=== PATIENT | female | born 1955 | race Caucasian/White ===

== ENCOUNTER 2020-04-09 17:30 | Outpatient (REF) | payer OTHER, MEDICARE, SELFPAY ==
--- NOTE | 2020-04-09 | MM_ITS ---
EXAMINATION: MM SCREENING DIGITAL BREAST TOMOSYNTHESIS, BILATERAL CLINICAL INFORMATION: Screening. Asymptomatic. The lifetime risk of breast cancer based on the Tyrer-Cuzick Model is 6%. COMPARISON: Mammography: 01/05/2019, 12/24/2017, 09/14/2016, 08/28/2015, 07/25/2014, 05/19/2013, 11/21/2012 TECHNIQUE: Digital breast tomosynthesis is performed in both the craniocaudal and mediolateral oblique views along with computer-aided detection (CAD). Synthesized 2D images are generated from the tomosynthesis. FINDINGS: There are scattered areas of fibroglandular density (ACR BI-RADS breast composition Category b). There is inhomogeneous parenchymal pattern with scattered stable asymmetries, similar to prior studies dating back to 2012. There is no interval developing density. No interval mass or interval architectural abnormality. No abnormal calcifications. The skin contours are smooth. MM/MM tomosynthesis screening BI IMPRESSION: No significant changes from prior exams. ASSESSMENT: BI-RADS 2: Benign RECOMMENDATION: Routine annual mammography screening. This patient's information was entered into a reminder system with a target due date for their next mammogram.
== END 2020-04-09 17:31 | disposition home or self-care (01) ==
LOC: HO.MAMMO 17:30
PROVIDERS: PCP Physician Assistant; Visit Provider Physician Assistant
DX: Z12.31 Encounter for screening mammogram for malignant neoplasm of breast (principal)
CPT/HCPCS: 77063; 77067

== ENCOUNTER 2020-05-14 08:56 | Outpatient (REF) | payer OTHER, MEDICARE, SELFPAY ==
[2020-05-14 09:37] LABS: MANUAL DIFF FLAG NO
[2020-05-14 09:38] LABS: Basophils Percent Auto 0.4 % (0-2); Eosinophils Absolute Auto 0.1 X10*3/uL (0.0-0.4); Eosinophils Percent Auto 1.5 % (0-4); Hematocrit 43.1 % (37-47); Hemoglobin 13.9 g/dl (12.0-16.0); Imm Gran Abs Auto 0.02 X10*3/uL (0.00-0.03); Imm Gran Pct Auto 0.2 % (0.0-0.4); Lymphocytes Absolute Auto 1.1 X10*3/uL (1.2-4.9); Lymphocytes Percent Auto 13.1 % (20-40); Mean Corpuscular HGB Conc 32.3 g/dl (31.0-35.0); Mean Corpuscular Volume 89.8 fL (80-98); Mean Platelet Volume 9.3 fL (9.4-12.3); Monocytes Absolute Auto 0.9 X10*3/uL (0.1-1.2); Monocytes Percent Auto 10.4 % (2-11); Neutrophils Absolute Auto 6.3 X10*3/uL (2.0-8.3); Neutrophils Percent Auto 74.4 % (45-73); Platelet Count 257 X10*3/uL (160-400); White Blood Count 8.5 X10*3/uL (4.8-10.8)
[2020-05-14 10:03] LABS: Estimated Average Glucose 117 mg/dL; Hemoglobin A1c % 5.7 %
[2020-05-14 10:20] LABS: Alanine Aminotransferase 43 U/L (0-31); Albumin Level 4.5 g/dL (3.5-5.0); Alkaline Phosphatase 77 U/L (39-117); Anion Gap 13 (12-20); Aspartate Amino Transferase 27 U/L (5-31); Bilirubin Total 1.3 mg/dL (0.0-1.0); Blood Urea Nitrogen 12 mg/dL (9-16); Calcium 9.2 mg/dL (8.4-10.2); Carbon Dioxide 31 mmol/L (22-29); Chloride 101 mmol/L (96-108); Cholesterol 222 mg/dL; Estimated Glomerular Filt Rate > 60; Glucose Fasting 97 mg/dL (60-99); HDL Cholesterol 79 mg/dL; LDL Cholesterol Calculated 127 mg/dl; Potassium 4.3 mmol/l (3.3-5.1); Sodium 141 mmol/L (135-145); Total Protein 7.3 g/dL (6.5-8.0); Triglycerides 80 mg/dL
[2020-05-14 10:22] LABS: Thyroid Stimulating Hormone 5.86 uIU/mL (0.32-4.0)
[2020-05-14 10:33] LABS: Creatinine Urine 65.68 mg/dL; Microalbum/Creatinine Ratio Ur 18.2 ug/mg cr
== END 2020-05-14 08:57 | disposition home or self-care (01) ==
LOC: HO.LAB 08:56
PROVIDERS: PCP Physician Assistant; Visit Provider Physician Assistant
DX: E03.9 Hypothyroidism, unspecified (principal); I11.0 Hypertensive heart disease with heart failure; E78.2 Mixed hyperlipidemia; R73.09 Other abnormal glucose
CPT/HCPCS: 36415; 80053; 80061; 82043; 83036; 84443; 85025

== ENCOUNTER 2020-11-25 10:05 | Outpatient (REF) | payer MEDICARE, OTHER, SELFPAY ==
[2020-11-25 10:48] LABS: Hematocrit 43.5 % (37-47); Mean Corpuscular HGB Conc 32.2 g/dl (31.0-35.0); Mean Corpuscular Hemoglobin 28.6 pg (27.0-33.0); Mean Corpuscular Volume 88.8 fL (80-98); Platelet Count 294 X10*3/uL (160-400); Red Cell Distribution Width 12.9 % (11.0-16.0); White Blood Count 5.4 X10*3/uL (4.8-10.8)
[2020-11-25 11:19] LABS: Alanine Aminotransferase 23 U/L (0-31); Albumin Level 4.5 g/dL (3.5-5.0); Alkaline Phosphatase 74 U/L (39-117); Anion Gap 12 (12-20); Aspartate Amino Transferase 22 U/L (5-31); Bilirubin Total 1.2 mg/dL (0.0-1.0); Blood Urea Nitrogen 11 mg/dL (9-16); Calcium 9.6 mg/dL (8.4-10.2); Carbon Dioxide 30 mmol/L (22-29); Chloride 103 mmol/L (96-108); Cholesterol 202 mg/dL; Estimated Glomerular Filt Rate > 60; Glucose Fasting 98 mg/dL (60-99); HDL Cholesterol 79 mg/dL; LDL Cholesterol Calculated 107 mg/dl; Potassium 4.1 mmol/L (3.3-5.1); Sodium 141 mmol/L (135-145); Total Protein 7.3 g/dL (6.5-8.0); Triglycerides 80 mg/dL
[2020-11-25 11:20] LABS: Creatinine Urine 38.47 mg/dL; Microalbum/Creatinine Ratio Ur 23.3 ug/mg cr
[2020-11-25 11:42] LABS: TSH reflex Free T4 0.32 uIU/mL (0.32-4.0)
== END 2020-11-25 10:06 | disposition home or self-care (01) ==
LOC: HO.LAB 10:05
PROVIDERS: PCP Physician Assistant; Visit Provider Physician Assistant
DX: E03.9 Hypothyroidism, unspecified (principal); E78.5 Hyperlipidemia, unspecified; I10 Essential (primary) hypertension
CPT/HCPCS: 36415; 80053; 80061; 82043; 84443; 85027

== ENCOUNTER 2021-04-23 10:00 | Outpatient (REF) | payer MEDICARE, OTHER, SELFPAY ==
--- NOTE | ~2021-04-23 | MM_ITS ---
EXAMINATION: MM SCREENING DIGITAL BREAST TOMOSYNTHESIS, BILATERAL CLINICAL INFORMATION: Screening. Asymptomatic. The lifetime risk of breast cancer based on the Tyrer-Cuzick Model is 6.3%. COMPARISON: Mammography: April 09, 2020 and studies dating back to September 21, 2011 TECHNIQUE: Digital breast tomosynthesis is performed in both the craniocaudal and mediolateral oblique views along with computer-aided detection (CAD). Synthesized 2D images are generated from the tomosynthesis. FINDINGS: The breasts are heterogeneously dense, which may obscure small masses (ACR BI-RADS breast composition Category c). There is a stable region of architectural distortion about the upper outer aspect of the right breast. No new abnormal dominant mass or suspicious grouping of microcalcifications identified. MM/MM tomosynthesis screening BI IMPRESSION: There are no significant changes from prior study. ASSESSMENT: BI-RADS 2: Benign RECOMMENDATION: Routine annual mammography screening. This patient's information was entered into a reminder system with a target due date for their next mammogram.
== END 2021-04-23 10:01 | disposition home or self-care (01) ==
LOC: HO.MAMMO 10:00
PROVIDERS: Visit Provider Physician Assistant
DX: Z12.31 Encounter for screening mammogram for malignant neoplasm of breast (principal)
CPT/HCPCS: 77063; 77067

== ENCOUNTER 2021-05-12 08:25 | Outpatient (REF) | payer MEDICARE, OTHER, SELFPAY | END 2021-05-12 08:26 | disposition home or self-care (01) | LOC: HO.LAB 08:25 | PROVIDERS: PCP Physician Assistant; Visit Provider Physician Assistant | DX: Z13.89 Encounter for screening for other disorder (principal) ==

== ENCOUNTER 2021-05-19 08:24 | Outpatient (REF) | payer MEDICARE, OTHER, SELFPAY ==
[2021-05-19 09:24] LABS: Hematocrit 40.9 % (37.0-47.0); Hemoglobin 13.1 g/dl (12.0-16.0); Mean Corpuscular Hemoglobin 28.4 pg (27.0-33.0); Mean Corpuscular Volume 88.7 fL (80.0-98.0); Mean Platelet Volume 9.2 fL (9.4-12.3); Platelet Count 294 X10*3/uL (160-400); Red Blood Count 4.61 X10*6/uL (4.20-5.50); Red Cell Distribution Width 13.2 % (11.0-16.0); White Blood Count 6.2 X10*3/uL (4.8-10.8)
[2021-05-19 09:48] LABS: Alanine Aminotransferase 29 U/L (0-31); Albumin Level 4.2 g/dL (3.5-5.0); Alkaline Phosphatase 74 U/L (39-117); Anion Gap 10 (12-20); Aspartate Amino Transferase 19 U/L (5-31); Bilirubin Total 1.1 mg/dL (0.0-1.0); Blood Urea Nitrogen 15 mg/dL (9-16); Calcium 9.7 mg/dL (8.4-10.2); Carbon Dioxide 29 mmol/L (22-29); Chloride 105 mmol/L (96-108); Cholesterol 208 mg/dL; Estimated Glomerular Filt Rate > 60; Glucose Fasting 105 mg/dL (60-99); HDL Cholesterol 65 mg/dL; LDL Cholesterol Calculated 119 mg/dl; Potassium 3.9 mmol/L (3.3-5.1); Sodium 140 mmol/L (135-145); Total Protein 6.8 g/dL (6.5-8.0); Triglycerides 123 mg/dL
[2021-05-19 10:07] LABS: TSH reflex Free T4 0.21 uIU/mL (0.32-4.0)
[2021-05-19 10:50] LABS: Free T4 (Free Thyroxine) 1.18 ng/dL (0.71-1.85)
== END 2021-05-19 08:25 | disposition home or self-care (01) ==
LOC: HO.LAB 08:24
PROVIDERS: PCP Physician Assistant; Visit Provider Physician Assistant
DX: E78.5 Hyperlipidemia, unspecified (principal); E03.9 Hypothyroidism, unspecified; I10 Essential (primary) hypertension
CPT/HCPCS: 36415; 80053; 80061; 84439; 84443; 85027

== ENCOUNTER 2021-06-24 13:55 | Outpatient (REF) | payer MEDICARE, OTHER, SELFPAY ==
--- NOTE | ~2021-06-24 | MM_ITS ---
EXAMINATION: BONE DENSITOMETRY CLINICAL INDICATION: Menopause. COMPARISON: Previous BD dated 04/25/2015 and baseline BD dated 07/09/2008. TECHNIQUE: Using a OnePIN DXA System (software version: 13.1) manufactured by [employer], dual-energy x-ray absorptiometry was performed of the lumbar spine and left hip. The images are of good technical quality. Summary results are attached. FINDINGS: AP SPINE L1-L4: Current: BMD 1.085 g/cm2, Z-score 0.8, T-score -0.8, normal, 5.2% decrease from previous, 7.2% decrease from baseline (<5% change is not significant). Prior: BMD 1.144 g/cm2. Baseline: BMD 1.169 g/cm2. LEFT FEMUR, NECK: Current: BMD 0.770 g/cm2, Z-score -0.3, T-score -1.9, osteopenia. Prior: BMD 0.824 g/cm2. Baseline: BMD 0.856 g/cm2. LEFT FEMUR, TOTAL: Current: BMD 0.822 g/cm2, Z-score -0.1, T-score -1.5, osteopenia, 5.3% decrease from previous, 8.9% decrease from baseline (<5% change is not significant). Prior: BMD 0.868 g/cm2. Baseline: BMD 0.902 g/cm2. IDENTIFIED RISK FACTORS: Menopause, family history (parent hip fracture), low calcium intake, Thiazide. HISTORY OF FRACTURE: None listed. MEDICATIONS: Vitamin D. MM/XR DEXA axial skeleton IMPRESSION: 1. DIAGNOSIS: Osteopenia based on the lowest T-score value of -1.9 in the femoral neck applying World Health Organization criteria. 2. 10-YEAR FRACTURE RISK PREDICTION, FRAX: Major osteoporotic fracture (clinical spine, forearm, hip or shoulder) 18.9%. Hip fracture 3.0%. 3. Treatment Recommendations: NOF guidelines recommend consideration for treatment in postmenopausal women and men age 50 and older presenting with the following: -A hip or vertebral (clinical or morphometric) fracture. -T-score less than or equal to -2.5 at the femoral neck or spine after appropriate evaluation to exclude secondary causes. -Low bone mass at the hip or spine and a 10-year fracture probability by FRAX of greater than or equal to 3% for hip fracture or greater than or equal to 20% for major osteoporotic fracture based on the [place] adapted WHO algorithm. 4. Other Recommendations: All treatment decisions require clinical judgment and consideration of individual patient factors, including patient preferences, comorbidities, previous drug use, risk factors not captured in the FRAX model (e.g. frailty, falls, vitamin D deficiency, increased bone turnover, interval significant decline in bone density) and possible under or overestimation of fracture risk by FRAX. Additional medical evaluation for secondary cause of low bone mineral density may be appropriate. FUTURE SCAN RECOMMENDATION: People with diagnosed cases of osteoporosis or at high risk for fracture should have regular bone mineral density tests. For patients eligible for Medicare, routine testing is allowed once every 2 years. The testing frequency can be increased to one year for patients who have rapidly progressing disease, those who are receiving or discontinuing medical therapy to restore bone mass, or have additional risk factors.
== END 2021-06-24 13:56 | disposition home or self-care (01) ==
LOC: HO.MAMMO 13:55
PROVIDERS: PCP Physician Assistant; Visit Provider Physician Assistant
DX: Z13.820 Encounter for screening for osteoporosis (principal); Z78.0 Asymptomatic menopausal state; M85.80 Other specified disorders of bone density and structure, unspecified site; Z79.899 Other long term (current) drug therapy
CPT/HCPCS: 77080

== ENCOUNTER 2021-11-18 09:13 | Outpatient (REF) | payer MEDICARE, OTHER, SELFPAY ==
[2021-11-18 09:55] LABS: Hematocrit 42.1 % (37.0-47.0); Hemoglobin 13.4 g/dl (12.0-16.0); Mean Corpuscular HGB Conc 31.8 g/dl (31.0-35.0); Mean Corpuscular Hemoglobin 28.3 pg (27.0-33.0); Mean Platelet Volume 8.8 fL (9.4-12.3); Platelet Count 302 X10*3/uL (160-400); Red Blood Count 4.73 X10*6/uL (4.20-5.50); Red Cell Distribution Width 13.1 % (11.0-16.0); White Blood Count 9.1 X10*3/uL (4.8-10.8)
[2021-11-18 10:07] LABS: Estimated Average Glucose 117 mg/dL; Hemoglobin A1c % 5.7 %
[2021-11-18 10:17] LABS: Creatinine Urine 39.83 mg/dL; Microalbum/Creatinine Ratio Ur 25.1 ug/mg cr
[2021-11-18 10:39] LABS: Alanine Aminotransferase 19 U/L (0-31); Albumin Level 4.6 g/dL (3.5-5.0); Alkaline Phosphatase 70 U/L (39-117); Anion Gap 14 (12-20); Aspartate Amino Transferase 20 U/L (5-31); Bilirubin Total 1.2 mg/dL (0.0-1.0); Blood Urea Nitrogen 14 mg/dL (9-16); Calcium 9.3 mg/dL (8.4-10.2); Carbon Dioxide 28 mmol/L (22-29); Chloride 102 mmol/L (96-108); Cholesterol 219 mg/dL; Estimated Glomerular Filt Rate > 60; Glucose Fasting 101 mg/dL (60-99); HDL Cholesterol 79 mg/dL; LDL Cholesterol Calculated 126 mg/dl; Potassium 3.8 mmol/L (3.3-5.1); Sodium 140 mmol/L (135-145); Total Protein 7.1 g/dL (6.5-8.0); Triglycerides 73 mg/dL
[2021-11-18 10:43] LABS: TSH reflex Free T4 1.21 uIU/mL (0.32-4.0)
== END 2021-11-18 09:14 | disposition home or self-care (01) ==
LOC: HO.LAB 09:13
PROVIDERS: PCP Physician Assistant; Visit Provider Physician Assistant
DX: E03.9 Hypothyroidism, unspecified (principal); I10 Essential (primary) hypertension; E78.5 Hyperlipidemia, unspecified
CPT/HCPCS: 36415; 80053; 80061; 82043; 83036; 84443; 85027

== ENCOUNTER 2021-11-24 12:50 | Outpatient (REF) | payer MEDICARE, OTHER, SELFPAY ==
[2021-11-24 14:13] LABS: Appearance Urine HAZY; Color Urine YELLOW; Glucose Urine UA NEG (NEG); Leukocyte Esterase Urine 2+ (NEG); Nitrite Urine NEG (NEG); Specific Gravity - Urine 1.015 (1.005-1.025); UACC Culture Trigger YES; Urine Blood NEG (NEG); Urine Ketones NEG (NEG); Urine Protein NEG (NEG-TRACE)
[2021-11-24 14:28] LABS: Bacteria Urine 2+ /LPF; Squamous Epithelial Cell Urine TRACE /LPF; WBC Clumps Urine NOTED
[2021-11-24 14:29] LABS: RBC Urine 0-2 /HPF (0)
== END 2021-11-24 12:51 | disposition home or self-care (01) ==
LOC: HO.HMGCLDS 12:50
PROVIDERS: PCP Physician Assistant; Visit Provider Internal Medicine
DX: R30.0 Dysuria (principal)
CPT/HCPCS: 81001; 87086; 87088; 87186

== ENCOUNTER 2022-04-20 09:07 | Outpatient (REF) | payer MEDICARE, OTHER, SELFPAY ==
[2022-04-20 09:56] LABS: Hematocrit 41.8 % (37.0-47.0); Hemoglobin 13.4 g/dl (12.0-16.0); Mean Corpuscular HGB Conc 32.1 g/dl (31.0-35.0); Mean Corpuscular Hemoglobin 28.1 pg (27.0-33.0); Mean Corpuscular Volume 87.6 fL (80.0-98.0); Mean Platelet Volume 8.7 fL (9.4-12.3); Platelet Count 317 X10*3/uL (160-400); Red Blood Count 4.77 X10*6/uL (4.20-5.50); Red Cell Distribution Width 13.4 % (11.0-16.0); White Blood Count 7.6 X10*3/uL (4.8-10.8)
[2022-04-20 10:12] LABS: Creatinine Urine 14.43 mg/dL; Microalbum/Creatinine Ratio Ur 41.5 ug/mg cr
[2022-04-20 11:25] LABS: Alanine Aminotransferase 32 U/L (0-31); Albumin Level 4.3 g/dL (3.5-5.0); Alkaline Phosphatase 79 U/L (39-117); Anion Gap 11 (12-20); Aspartate Amino Transferase 26 U/L (5-31); Bilirubin Total 1.1 mg/dL (0.0-1.0); Blood Urea Nitrogen 11 mg/dL (9-16); Calcium 9.3 mg/dL (8.4-10.2); Carbon Dioxide 31 mmol/L (22-29); Chloride 103 mmol/L (96-108); Cholesterol 208 mg/dL; Estimated Glomerular Filt Rate > 60; Glucose Fasting 97 mg/dL (60-99); HDL Cholesterol 75 mg/dL; LDL Cholesterol Calculated 119 mg/dl; Potassium 3.8 mmol/L (3.3-5.1); Sodium 141 mmol/L (135-145); TSH reflex Free T4 2.17 uIU/mL (0.32-4.0); Total Protein 7.1 g/dL (6.5-8.0); Triglycerides 72 mg/dL
== END 2022-04-20 09:08 | disposition home or self-care (01) ==
LOC: HO.LAB 09:07
PROVIDERS: PCP Physician Assistant; Visit Provider Physician Assistant
DX: E78.5 Hyperlipidemia, unspecified (principal); E03.9 Hypothyroidism, unspecified; I10 Essential (primary) hypertension
CPT/HCPCS: 36415; 80053; 80061; 82043; 84443; 85027

== ENCOUNTER 2022-04-27 11:50 | Outpatient (REF) | payer MEDICARE, OTHER, SELFPAY ==
--- NOTE | ~2022-04-27 | MM_ITS ---
EXAMINATION: MM SCREENING DIGITAL BREAST TOMOSYNTHESIS, BILATERAL CLINICAL INFORMATION: Screening. Asymptomatic. The lifetime risk of breast cancer based on the Tyrer-Cuzick Model is 5%. COMPARISON: Mammography: 04/23/2021, 04/09/2020, 01/05/2019, 12/24/2017, 09/14/2016 TECHNIQUE: Digital breast tomosynthesis is performed in both the craniocaudal and mediolateral oblique views along with computer-aided detection (CAD). Synthesized 2D images are generated from the tomosynthesis. FINDINGS: There are scattered areas of fibroglandular density (ACR BI-RADS breast composition Category b). There are chronic bilateral patchy parenchymal asymmetries similar to prior studies. No developing density or interval mass or architectural abnormality. No abnormal calcifications. The axilla and skin contours are unremarkable. No significant changes. MM/MM tomosynthesis screening BI IMPRESSION: No significant changes from prior exams. ASSESSMENT: BI-RADS 2: Benign RECOMMENDATION: Routine annual mammography screening. This patient's information was entered into a reminder system with a target due date for their next mammogram.
== END 2022-04-27 11:51 | disposition home or self-care (01) ==
LOC: HO.MAMMO 11:50
PROVIDERS: PCP Physician Assistant; Visit Provider Physician Assistant
DX: Z12.31 Encounter for screening mammogram for malignant neoplasm of breast (principal)
CPT/HCPCS: 77063; 77067

== ENCOUNTER 2022-08-13 11:23 | Outpatient (REF) | payer MEDICARE, OTHER, SELFPAY ==
--- NOTE | ~2022-08-13 | XR_ITS ---
EXAMINATION: XR WRIST, LEFT XR HAND, LEFT CLINICAL INFORMATION: Left hand and wrist pain. COMPARISON: None available. TECHNIQUE: PA, lateral, and oblique views of the left wrist and PA, lateral, and oblique views of the left hand FINDINGS: LEFT WRIST: The bones and soft tissues are normal. No fracture. Alignment is anatomic. Joint spaces are maintained. No erosions or soft tissue calcifications. LEFT HAND: The bones and soft tissues are normal. No fracture. Alignment is anatomic. Joint spaces are maintained. No erosions or soft tissue calcifications. XR/XR hand wrist LT IMPRESSION: Unremarkable left hand and wrist.
== END 2022-08-13 11:24 | disposition home or self-care (01) ==
LOC: HO.HMGCX 11:23
PROVIDERS: PCP Physician Assistant; Visit Provider Internal Medicine
DX: M25.532 Pain in left wrist (principal)
CPT/HCPCS: 73110; 73130

== ENCOUNTER 2022-11-03 09:52 | Outpatient (REF) | payer MEDICARE, OTHER, SELFPAY ==
[2022-11-03 11:43] LABS: Hematocrit 41.2 % (37.0-47.0); Hemoglobin 13.3 g/dl (12.0-16.0); Mean Corpuscular HGB Conc 32.3 g/dl (31.0-35.0); Mean Corpuscular Hemoglobin 28.9 pg (27.0-33.0); Mean Corpuscular Volume 89.4 fL (80.0-98.0); Mean Platelet Volume 9.7 fL (9.4-12.3); Platelet Count 307 X10*3/uL (160-400); Red Blood Count 4.61 X10*6/uL (4.20-5.50); Red Cell Distribution Width 13.4 % (11.0-16.0); White Blood Count 6.1 X10*3/uL (4.8-10.8)
[2022-11-03 12:38] LABS: Alanine Aminotransferase 20 U/L (0-31); Albumin Level 4.3 g/dL (3.5-5.0); Alkaline Phosphatase 73 U/L (39-117); Anion Gap 14 (12-20); Aspartate Amino Transferase 21 U/L (5-31); Bilirubin Total 1.4 mg/dL (0.0-1.0); Blood Urea Nitrogen 12 mg/dL (9-16); Calcium 9.7 mg/dL (8.4-10.2); Carbon Dioxide 28 mmol/L (22-29); Chloride 103 mmol/L (96-108); Cholesterol 206 mg/dL; Estimated Glomerular Filt Rate > 60; Glucose Fasting 92 mg/dL (60-99); HDL Cholesterol 64 mg/dL; LDL Cholesterol Calculated 128 mg/dl; Potassium 3.5 mmol/L (3.3-5.1); Sodium 141 mmol/L (135-145); Total Protein 7.4 g/dL (6.5-8.0); Triglycerides 72 mg/dL
[2022-11-03 12:41] LABS: TSH reflex Free T4 0.52 uIU/mL (0.32-4.0)
[2022-11-03 13:11] LABS: Creatinine Urine 40.89 mg/dL; Microalbum/Creatinine Ratio Ur 17.1 ug/mg cr
== END 2022-11-03 09:53 | disposition home or self-care (01) ==
LOC: HO.HMGCLDS 09:52
PROVIDERS: PCP Physician Assistant; Visit Provider Physician Assistant
DX: E03.9 Hypothyroidism, unspecified (principal); I10 Essential (primary) hypertension; E78.5 Hyperlipidemia, unspecified
CPT/HCPCS: 36415; 80053; 80061; 82043; 84443; 85027

== ENCOUNTER 2023-04-28 12:13 | Outpatient (REF) | payer MEDICARE, OTHER, SELFPAY | END 2023-04-28 12:14 | disposition home or self-care (01) | LOC: HO.MAMMO 12:13 | PROVIDERS: PCP Physician Assistant; Visit Provider Physician Assistant | DX: Z12.31 Encounter for screening mammogram for malignant neoplasm of breast (principal) | CPT/HCPCS: 77063; 77067 ==

== ENCOUNTER → 2023-04-28 12:30 | Outpatient (BNV) | payer MEDICARE, OTHER, SELFPAY | PROVIDERS: PCP Physician Assistant; Visit Provider Radiology Diagnostic Radiology | DX: Z12.31 Encounter for screening mammogram for malignant neoplasm of breast (principal) | CPT/HCPCS: 77063; 77067 ==

== ENCOUNTER 2023-04-29 08:38 | Outpatient (REF) | payer MEDICARE, OTHER, SELFPAY ==
[2023-04-29 12:00] LABS: Hematocrit 41.7 % (37.0-47.0); Hemoglobin 13.2 g/dl (12.0-16.0); Mean Corpuscular HGB Conc 31.7 g/dl (31.0-35.0); Mean Corpuscular Volume 88.5 fL (80.0-98.0); Mean Platelet Volume 9.1 fL (9.4-12.3); Platelet Count 320 X10*3/uL (160-400); Red Blood Count 4.71 X10*6/uL (4.20-5.50); Red Cell Distribution Width 13.5 % (11.0-16.0); White Blood Count 6.5 X10*3/uL (4.8-10.8)
[2023-04-29 12:19] LABS: Alanine Aminotransferase 14 U/L (0-31); Albumin Level 4.2 g/dL (3.5-5.0); Alkaline Phosphatase 74 U/L (39-117); Anion Gap 11 (12-20); Aspartate Amino Transferase 18 U/L (5-31); Bilirubin Total 1.2 mg/dL (0.0-1.0); Blood Urea Nitrogen 16 mg/dL (9-16); Calcium 9.4 mg/dL (8.4-10.2); Carbon Dioxide 30 mmol/L (22-29); Chloride 100 mmol/L (96-108); Cholesterol 204 mg/dL (<200); Estimated Glomerular Filt Rate > 60; Glucose Fasting 92 mg/dL (60-99); HDL Cholesterol 71 mg/dL (>40); LDL Cholesterol Calculated 117 mg/dL (<100); Potassium 3.4 mmol/L (3.3-5.1); Sodium 138 mmol/L (135-145); Total Protein 7.4 g/dL (6.5-8.0); Triglycerides 84 mg/dL (<150)
== END 2023-04-29 08:39 | disposition home or self-care (01) ==
LOC: HO.HMGCLDS 08:38
PROVIDERS: PCP Physician Assistant; Visit Provider Physician Assistant
DX: E03.9 Hypothyroidism, unspecified (principal); I10 Essential (primary) hypertension; E78.5 Hyperlipidemia, unspecified
CPT/HCPCS: 36415; 80053; 80061; 84443; 85027

== ENCOUNTER 2023-05-04 08:43 | Outpatient (AMB) | payer MEDICARE, OTHER, SELFPAY ==
[2023-05-04 08:44] VITALS: BP 130/82; PULSE 70; O2SAT 100; BMI 25.3
--- NOTE | 2023-05-04 08:44 | AM.OFFVISMDC ---
Intake Vital Signs 05/04/23 08:44 Height 5 ft 3 in Weight 143 lb 0.6 oz BMI 25.3 BP 130/82 Blood Pressure Location Lt brachial Position Sitting Pulse 70 Pulse Source Pulse Oximeter Pulse Oximetry (%) 100 Oxygen Delivery Method Room Air Intake Visit Reasons: AWV last 04/29/22 Intake Note: Patient is here for an Annual Wellness Visit. Hospital Chief Financial Officer Required: No Allergies tobramycin Allergy (Unknown, Verified 05/04/23 09:00) swelling Medication List - Last Reconciled 05/04/23 by MABEL Rapp albuterol sulfate 90 mcg/actuation (Proventil HFA) 2 puffs inhalation Q6H PRN atorvastatin 20 mg PO DAILY levothyroxine 75 mcg PO DAILY 90 days losartan-hydrochlorothiazide 100-25 mg 1 tab PO DAILY 90 days montelukast 10 mg PO DAILY sennosides (Senna Lax) 17.2 mg (2 x 8.6 mg) PO BEDTIME PRN 30 days HPI AWV last 04/29/22 HPI Details Patient is a 67-year-old female who presents today for subsequent wellness visit. Patient of ANDREW Nunes. Patient is up-to-date with her health preventative screenings and immunizations. Bone density screen 06/2021 with osteopenia. Mammogram 04/2023 results pending. [place] of care was reviewed with the patient and she was provided with a screening schedule. End of life planning was discussed with the patient and she was provided with healthcare proxy and MOLST forms. [facility]LY [facility], [facility] Medical History (Updated 05/04/23 @ 09:16 by MABEL Rapp) Cough Wrist pain, left Acute maxillary sinusitis Surgical History History of colonoscopy History of carpal tunnel release History of section Family History Father Alzheimers disease Substance abuse Mother Pneumonia Stroke Brother In good health Son In good health Daughter In good health Social History Housing: House Alcohol intake: never Patient Tobacco Use Status: Never used Tobacco e-Cigarette/Vaping Use: Never Used Second Hand Smoke Exposure: Yes service: No Current occupational status: retired Cognitive needs: No Hearing needs: No Vision needs: No (wears glasses) Questionnaire Medicare Wellness Checkup What [age] your [age]?: 65-69 (66) What gender do you identify with?: female During the past 4 weeks, how much have you been bothered by emotional problems such as feeling anxious, depressed, irritable, sad or downhearted, and blue?: not at all During the past 4 weeks, has your physical & emotional health limited your social activities with family, friends, neighbors, or groups?: not at all During the past 4 weeks, how much bodily pain have you generally had?: very mild pain During the past 4 weeks, was someone available to help you if you needed & wanted help?: yes, as much as I wanted During the past 4 weeks, what was the hardest physical activity you could do for at least 2 minutes?: very heavy Can you get to places out of walking distance without help? (For eg., can you travel alone on buses, taxis or drive your car?): Yes Can you go shopping for groceries or clothes without someone's help?: Yes Can you prepare your own meals?: Yes Can you do your housework without help?: Yes Because of any health problems, do you need the help of another person with your personal care needs such as eating, bathing, dressing or getting around the house?: No Can you handle your own money without help?: Yes During the past 4 weeks, how would you rate your health in general?: excellent During the past 4 weeks how have things been going for you?: very well; could hardly better Are you having difficulties driving your car?: no Do you always fasten your seat belt when you are in a car?: yes, usually During past 4 weeks, have you been bothered by the following: never: Falling or dizzy when standing up, Sexual problems?, Trouble eating well?, Teeth or denture problems?, Problems using the telephone? and Tiredness or fatigue? Have you fallen 2 or more times in the past year?: No Are you afraid of falling?: No Are you a smoker?: no During the past 4 weeks, how many drinks of wine, beer, or other alcoholic beverages did you have?: no alcohol at all Do you exercise for about 20 minutes 3 or more times a week?: yes, most of the time Have you been given information to help with the following?: no: Hazards in your house that might hurt you? and no: Keeping track of your medications? How often do you have trouble taking medicines the way you have been told to take them?: I always take medicine as prescribed How confident are you that you can control & manage most of your health problems?: very confident What is your race?: White Mini Mental State Exam (MMSE) Orientation What is the (year) (season) (date) (day) (month)?: year, season, date, day and month Score Score: 5 Activity of Daily Living Bathing - sponge bath, tub bath or shower: receives no assistance (gets in/out by self, if usual bathing means Dressing - getting clothes from closets & drawers, including inner/outer garments & fasteners.: gets clothes & gets completely dressed without help Toileting - going to the 'toilet room' for urine/bowel elimination & cleaning self/arranging clothes: goes to toilet room, cleans self, arranges clothes without help Transfer: moves in & out of bed and chair without help (may use support object) Continence: controls urination/bowel movements completely by self Feeding: feeds self without help Total Score: 0 Information obtained from: patient Using telephone: independent Traveling: independent Shopping: independent Preparing meals: independent Housework: independent Taking medicine: independent Managing money: independent PHQ-9 Over the last 2 weeks, how often have you been bothered by any of the following problems? 1. Little interest or pleasure in doing things: not at all 2. Feeling down, depressed, or hopeless: not at all 3. Trouble falling or staying asleep, or sleeping too much: several days 4. Feeling tired or having little energy: several days 5. Poor appetite or overeating: not at all 6. Feeling bad about yourself - or that you are a failure or have let yourself or your family down: not at all 7. Trouble concentrating on things, such as reading the newspaper or watching television: not at all 8. Moving or speaking so slowly that other people could have noticed. Or the opposite - being so fidgety or restless that you have been moving around a lot more than usual: not at all 9. Thoughts that you would be better off or of hurting yourself in some way: not at all Total score: 2 Depression Screening Interpretation: Negative Depression Screening Done: Yes 19651 - PHQ-9 Billing: Yes Source: Developed by Drs. Quirino Holley, Davina Schmidt, Mj Castillo and colleagues, with an educational ila from [employer]. Physical Exam Vital Signs: Last Vital Signs Pulse 70 05/04/23 08:44 BP 130/82 05/04/23 08:44 Pulse Ox 100 05/04/23 08:44 Oxygen Delivery Method Room Air 05/04/23 08:44 BMI result Body Mass Index 25.3 Const General: cooperative and no acute distress Orientation/consciousness: patient oriented x3 HEENT Other: Whisper test: pass Neuro Other: Balance: Normal Get up and walk: able to Romberg: negative Tandem gait: able to General: patient oriented x3 Assessment & Plan Assessment & Plan (1) Annual physical exam: Code(s): Z00.00 - Encounter for general adult medical examination without abnormal findings Plan: Repeat in 1 year (2) Borderline hyperlipidemia: Code(s): E78.5 - Hyperlipidemia, unspecified Plan: Atorvastatin 20 mg daily Low-cholesterol diet (3) HTN (hypertension): Code(s): I10 - Essential (primary) hypertension Qualifiers: Hypertension type: essential hypertension Qualified Code(s): I10 - Essential (primary) hypertension Plan: Continue current treatment Low-sodium diet (4) Hypothyroidism: Code(s): E03.9 - Hypothyroidism, unspecified Qualifiers: Hypothyroidism type: unspecified Qualified Code(s): E03.9 - Hypothyroidism, unspecified Plan: Levothyroxine 75 mcg daily (5) Overweight (BMI 25.0-29.9): Code(s): E66.3 - Overweight Plan: Healthy food choices and exercise as tolerated (6) Constipation: Code(s): K59.00 - Constipation, unspecified Qualifiers: Constipation type: chronic idiopathic constipation Qualified Code(s): K59.04 - Chronic idiopathic constipation Plan: On senna Quality Reporting (2019) Depression/Bipolar (159/160/161/177) PHQ-9: Total score: 2 Coding Level of Care Code Medicare Subsequent (G0439) Diagnoses Annual physical exam Z00.00 Borderline hyperlipidemia E78.5 Essential hypertension I10 Hypertension type: essential hypertension Hypothyroidism, unspecified type E03.9 Hypothyroidism type: unspecified Overweight (BMI 25.0-29.9) E66.3 Chronic idiopathic constipation K59.04 Constipation type: chronic idiopathic constipation CPT Codes Advance Care Planning - Time spent: 1-15 minutes, not on file ([id number]) Advance Care Planning Date of discussion: 05/04/23 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
== END 2023-05-04 09:12 | disposition home or self-care (01) ==
PROVIDERS: Visit Provider Nurse Practitioner Family
DX: Z00.00 Encounter for general adult medical examination without abnormal findings (principal); E78.5 Hyperlipidemia, unspecified; I10 Essential (primary) hypertension; E03.9 Hypothyroidism, unspecified; E66.3 Overweight; K59.04 Chronic idiopathic constipation
CPT/HCPCS: 1124F; G0439

== ENCOUNTER 2023-11-02 09:41 | Outpatient (REF) | payer MEDICARE, OTHER, SELFPAY ==
[2023-11-02 10:27] LABS: Hematocrit 40.5 % (37.0-47.0); Hemoglobin 13.1 g/dl (12.0-16.0); Mean Corpuscular HGB Conc 32.3 g/dl (31.0-35.0); Mean Corpuscular Hemoglobin 28.9 pg (27.0-33.0); Mean Corpuscular Volume 89.2 fL (80.0-98.0); Mean Platelet Volume 9.2 fL (9.4-12.3); Platelet Count 276 X10*3/uL (160-400); Red Blood Count 4.54 X10*6/uL (4.20-5.50); Red Cell Distribution Width 13.4 % (11.0-16.0); White Blood Count 6.1 X10*3/uL (4.8-10.8)
[2023-11-02 11:12] LABS: Alanine Aminotransferase 19 U/L (0-31); Albumin Level 4.2 g/dL (3.5-5.0); Alkaline Phosphatase 67 U/L (39-117); Anion Gap 10 (12-20); Aspartate Amino Transferase 19 U/L (5-31); Bilirubin Total 1.1 mg/dL (0.0-1.0); Blood Urea Nitrogen 12 mg/dL (9-16); Calcium 9.1 mg/dL (8.4-10.2); Carbon Dioxide 29 mmol/L (22-29); Chloride 105 mmol/L (96-108); Cholesterol 209 mg/dL (<200); Estimated Glomerular Filt Rate > 60; Glucose Fasting 98 mg/dL (60-99); HDL Cholesterol 74 mg/dL (>40); LDL Cholesterol Calculated 118 mg/dL (<100); Potassium 3.4 mmol/L (3.3-5.1); Sodium 141 mmol/L (135-145); TSH reflex Free T4 1.58 uIU/mL (0.32-4.0); Total Protein 7.2 g/dL (6.5-8.0); Triglycerides 85 mg/dL (<150)
[2023-11-02 14:07] LABS: Creatinine Urine 45.43 mg/dL; Microalbum/Creatinine Ratio Ur 13.2 ug/mg cr (<30)
== END 2023-11-02 09:42 | disposition home or self-care (01) ==
LOC: HO.HMGCLDS 09:41
PROVIDERS: PCP Physician Assistant; Visit Provider Physician Assistant
DX: E03.9 Hypothyroidism, unspecified (principal); E78.5 Hyperlipidemia, unspecified; I10 Essential (primary) hypertension
CPT/HCPCS: 36415; 80053; 80061; 82043; 82570; 84443; 85027

== ENCOUNTER 2023-11-04 09:19 | Outpatient (AMB) | payer MEDICARE, OTHER, SELFPAY ==
--- NOTE | 2023-11-04 09:21 | MHC.PC.OV ---
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 Required: No Accompanied by: Self / Same As Patient Allergies tobramycin Allergy (Unknown, Verified 11/04/23 09:43) swelling Medication List - Last Reconciled 11/04/23 by Narinder Nunes PA-C albuterol sulfate 90 mcg/actuation (Proventil HFA) 2 puffs inhalation Q6H PRN atorvastatin 20 mg PO DAILY levothyroxine 75 mcg PO DAILY 90 days losartan-hydrochlorothiazide 100-25 mg 1 tab PO DAILY 90 days montelukast 10 mg PO DAILY sennosides (Senna Lax) 17.2 mg (2 x 8.6 mg) PO BEDTIME PRN 30 days Tobacco use date assessed: 11/04/23 Dental Screening Dental Screen Date: 11/02/22 HPI HLD HPI Details Jose R is a 68 y/o F ? here today for for follow-up visit Patient has a past medical history significant for hypothyroidism, hypertension, hyperlipidemia. ? .. ? HTN: Blood pressure today slightly elevated in office. doesn't regularly take her BP at home. Taking HTN meds without any side effects. ? .. ? HLD: Taking Statin for cholesterol, reporting No side effects.. Patient has gained a small amount of weight over the last 6months . ? .. ? Hypothyroid:? Patient continues levothyroxine 75 mcg. Most recent TSH stable. TSH has been somewhat stable though does have to make adjustments in her levothyroxine dose at times. Will recheck TSH to assure normal. Laboratory Tests 04/29/23 11/02/23 08:42 09:44 RBC 4.54 Creatinine 0.73 Cholesterol 209 H LDL Cholesterol, C alc 117 H 118 H Urine Microalbumin 6.0 Laboratory Tests 11/02/23 09:44 TSH 1.58 [facility] Medical History (Updated 11/04/23 @ 09:50 by Narinder Nunes PA-C) Cough Wrist pain, left Acute maxillary sinusitis Surgical History History of colonoscopy History of carpal tunnel release History of section Family History Father Alzheimers disease Substance abuse Mother Pneumonia Stroke Brother In good health Son In good health Daughter In good health Social History Housing: House Alcohol intake: never Patient Tobacco Use Status: Never used Tobacco e-Cigarette/Vaping Use: Never Used Second Hand Smoke Exposure: Yes service: No Current occupational status: retired Cognitive needs: No Hearing needs: No Vision needs: No (wears glasses) Questionnaire PHQ-9 Over the last 2 weeks, how often have you been bothered by any of the following problems? 1. Little interest or pleasure in doing things: not at all 2. Feeling down, depressed, or hopeless: not at all 3. Trouble falling or staying asleep, or sleeping too much: not at all 4. Feeling tired or having little energy: not at all 5. Poor appetite or overeating: not at all 6. Feeling bad about yourself - or that you are a failure or have let yourself or your family down: not at all 7. Trouble concentrating on things, such as reading the newspaper or watching television: not at all 8. Moving or speaking so slowly that other people could have noticed. Or the opposite - being so fidgety or restless that you have been moving around a lot more than usual: not at all 9. Thoughts that you would be better off or of hurting yourself in some way: not at all Total score: 0 Depression Screening Interpretation: Negative Depression Screening Done: Yes 79995 - PHQ-9 Billing: Yes Source: Developed by Drs. Quirino Holley, Davina Schmidt, Mj Castillo and colleagues, with an educational ila from [employer]. Thrive Questionnaire Date Thrive assessed: 11/04/23 I am a: Patient What is your living situation today?: I have a steady place to live Within the past 12 months, did the food you bought not last and you didn't have the money to get more?: Never true Within the past 12 months, did you worry whether your food would run out before you got money to buy more?: Never true Do you have trouble paying for medicines?: No Do you have trouble getting transportation to medical appointments?: No Do you have trouble paying your heating and electricity bill?: No Do you have trouble taking care of your child, family member or friend?: No Do you have trouble with day-to-day activities such as bathing, preparing meals, shopping, managing finances, etc.?: No Are you currently unemployed and looking for a job?: No Are you interested in more education?: No Please select the resources that you would like help with: None Currently or been in a relationship where the following occur: no concerns reported THRIVE Score: 0 AUDIT C Alcohol Use Questionnaire (AUDIT-C) 1. How often do you have a drink containing alcohol?: Never 3. How often do you have six or more drinks on one occasion?: Never Total Score: 0 Score Reviewed/Action Taken: No DONNA-7 AMB Questionnaire DONNA-7 Date DONNA - 7 assessed: 11/04/23 Feeling nervous, anxious, or on edge: 0 = Not at all Not being able to stop or control worryin = Not at all Worrying too much about different things: 0 = Not at all Trouble relaxin = Not at all Being so restless that it is hard to sit still: 0 = Not at all Becoming easily annoyed or irritable: 0 = Not at all Feeling afraid as if something awful might happen: 0 = Not at all Total DONNA-7 score (0-4 normal; 5-9 mild; 10-14 moderate; 15-21 severe): 0 Source: Developed by Drs. Quirino Holley, Davina Schmidt, Mj Castillo and colleagues, with an educational ila from [employer]. DONNA-7 Assessment Billing DONNA-7 Assessment Tool: DONNA-7 Assessment 27195 Review of Systems Const Denies body aches, Denies chills, Denies excessive sweating, Denies fatigue, Denies fever(s) and Denies headache(s) Eyes Denies blurry vision ENT Denies dysphagia, Denies vertigo, Denies dizziness, Denies headache(s), Denies hearing loss and Denies tinnitus Card Denies chest pain, Denies chest pain with activity, Denies syncope, Denies irregular heart rhythm and Denies dyspnea Resp Denies chest congestion, Denies cough, Denies hemoptysis, Denies dyspnea and Denies wheezing GI Denies abdominal pain, Denies melena, Denies hematochezia, Denies coffee ground emesis, Denies dysphagia, Denies diarrhea, Denies nausea and Denies vomiting Denies urinary frequency, Denies dysuria, Denies urinary hesitancy and Denies urinary urgency Musc Denies arthralgias, Denies limited range of motion, Denies muscle cramps and Denies muscle weakness Skin/Breast Denies rash and Denies skin ulcer Neuro Denies Abnormal speech present, Denies confusion, Denies vertigo, Denies dizziness, Denies syncope, Denies headache(s), Denies memory loss and Denies seizure-like activity Psych Denies anxiety, Denies confusion, Denies depression, Denies memory loss, Denies panic attacks and Denies paranoia Endo Denies excessive sweating, Denies fatigue, Denies flushing, Denies polydipsia and Denies polyuria Donavon/Lymph Denies easy bleeding and Denies easy bruising Aller/Immun Denies wheezing Physical exam (Primary Care) Vital Signs: Last Vital Signs Pulse 68 11/04/23 09:35 BP 140/78 H 11/04/23 09:35 Pulse Ox 98 11/04/23 09:35 Oxygen Delivery Method Room Air 11/04/23 09:35 BMI result Body Mass Index 26.4 Tobacco/Smoking Status: Tobacco use Status Tobacco use date assessed 11/04/23 11/04/23 09:42 Patient Tobacco Use Status Never used Tobacco 11/04/23 09:21 e-Cigarette/Vaping Use Never Used 11/04/23 09:21 PHQ-9: PHQ-9 Score PHQ-9: Total score 0 11/04/23 09:44 Depression Screening Interpretation: Negative Thrive Assessment: Date of Thrive Assessment Date Thrive assessed 11/04/23 11/04/23 09:42 Currently or been in a relationship where the following occur: no concerns reported Const General: cooperative, comfortable, no acute distress, alert and awake; No confusion Nutritional Appearance: well nourished Orientation/consciousness: oriented to person, oriented to place, patient oriented x3 and No confusion HENMT Head: Yes normocephalic Ears: external ears normal and TM's normal bilaterally General nose exam: Normal nasal mucous membranes and turbinates present Face and sinus: No sinus tenderness Mouth: Normal oral and palatal mucosa present and tongue normal Teeth and gingiva: dentition normal and gingiva normal Throat: Yes posterior oropharynx normal, Yes tonsils normal and Yes uvula midline Eyes Conjunctivae: conjunctivae normal Sclerae: sclerae normal Pupils: Equal, round and reactive pupils present EOM: EOMs intact bilaterally Direct Ophthalmoscopy: No no photophobia Neck Neck: Yes no lymphadenopathy, No tender and Yes no JVD Thyroid: Thyroid normal Carotids: no bruits Chest Chest palpation & inspection: no tenderness Resp Effort & Inspection: normal respiratory effort, no audible wheezes, not labored and no stridor Auscultation: no crackles, no rales, no rhonchi and no wheezes Cardio Jugular venous distension: no JVD Rate: regular rate, not bradycardic and not tachycardic Rhythm: regular rhythm Heart sounds: no murmurs and normal S1 and S2 Bruits: no carotid bruits Peripheral pulses: Peripheral pulses 2+ throughout GI Inspection: Yes normal to inspection, No abdominal wall ecchymosis and No visible herniation Palpation (GI): Soft to palpation, nontender, no guarding, not rigid and No hepatosplenomegaly present Auscultation: normoactive bowel sounds General: Yes no CVA tenderness Back/Spine/Pelvis Back: no CVA tenderness and No back tenderness Cervical Spine: cervical ROM normal Thoracic/Lumbar Spine: thoracic and lumbar spine normal to inspection, straight leg raise negative bilaterally, No thoraco-lumbar ROM limited and No lumbar spinal tenderness Skin General skin exam: no rashes or lesions noted and dry skin Lesions: no lesions Rashes: no rashes Wounds: no wounds Neuro General: oriented to person, oriented to place, patient oriented x3, CN's II-XI intact bilaterally and No confusion Cranial nerves: Yes Equal, round and reactive pupils present and Yes Normal accommodation reflex present Cognition (Neuro): normal cognition Speech: No Abnormal speech present Gait exam (Neuro): Normal gait present Motor exam (neuro): 5/5 motor strength present throughout Extrem Right upper extremity: full ROM; no cyanosis Left upper extremity: full ROM; no cyanosis Right lower extremity: no edema Left lower extremity: no edema Psych Appearance: grossly normal Mental Status: mental status grossly normal Speech and movement: Normal speech and movement present Affect: normal affect Attitude: cooperative Thought process: Normal thought process present Assessment and Plan Assessment & Plan (1) HTN (hypertension): Code(s): I10 - Essential (primary) hypertension Qualifiers: Hypertension type: essential hypertension Qualified Code(s): I10 - Essential (primary) hypertension Plan: Patient's blood pressure slightly elevated today in office, she will try to monitor blood pressure at home closely.. Will continue her current dose of losartan hydrochlorothiazide with goal blood pressure be below 140/90 (2) Borderline hyperlipidemia: Code(s): E78.5 - Hyperlipidemia, unspecified Plan: Patient continues on statin therapy without side effect. Will recheck fasting lipids to ensure appropriate total cholesterol and LDL. Goal LDL to be below 160 (3) Hypothyroidism: Code(s): E03.9 - Hypothyroidism, unspecified Qualifiers: Hypothyroidism type: unspecified Qualified Code(s): E03.9 - Hypothyroidism, unspecified Plan: Patient continues on 75 mcg of levothyroxine. TSH has been stable.. Recheck TSH to assure normal and the need for adjustments in medication. Orders: Orders Lipid Panel 11/04/23 E78.5 - Hyperlipidemia, unspecified Comprehensive [place]. Panel Fast 11/04/23 I10 - Essential (primary) hypertension Complete Blood Count no Diff 11/04/23 I10 - Essential (primary) hypertension TSH reflex Free T4 11/04/23 E03.9 - Hypothyroidism, unspecified Patient Instructions: Goal: Blood pressure to be below 140/90 Barriers: Adherence to physical activity and healthy eating habits Coding Level of Care Code Est Pt Level 4 (78802) Complex EM visit Add On G2211 Diagnoses Essential hypertension I10 Hypertension type: essential hypertension Borderline hyperlipidemia E78.5 Hypothyroidism, unspecified type E03.9 Hypothyroidism type: unspecified Additional Codes DONNA-7 Assessment Billing - DONNA-7 Assessment Tool: DONNA-7 Assessment 98352 ([id number])
[2023-11-04 09:35] VITALS: BP 140/78; PULSE 68; O2SAT 98; BMI 26.4
== END 2023-11-04 10:05 | disposition home or self-care (01) ==
PROVIDERS: PCP Physician Assistant; Visit Provider Physician Assistant
DX: I10 Essential (primary) hypertension (principal); E78.5 Hyperlipidemia, unspecified; E03.9 Hypothyroidism, unspecified
CPT/HCPCS: 99214; G2211

== ENCOUNTER 2024-03-06 10:13 | Outpatient (AMB) | payer MEDICARE, OTHER, SELFPAY ==
--- NOTE | 2024-03-06 10:55 | MHC.OFFWIV ---
Intake Vital Signs 03/06/24 10:56 Height 5 ft 3 in Weight 151 lb BMI 26.7 BP 130/86 Blood Pressure Location Lt brachial Position Sitting Pulse 74 Pulse Source Pulse Oximeter Temp 99.6 F Temp Source Oral Pulse Oximetry (%) 98 Oxygen Delivery Method Room Air Intake Visit Reasons: EP-cough, headaches, fever, chest congestion Intake Note: Patient here for cough, headache, fever, chills, chest congestion which all started Wednesday night. Patient Tobacco Use Status: Never used Tobacco Allergies tobramycin Allergy (Unknown, Verified 03/06/24 10:56) swelling Do you need a note to return to daycare/school/sports/work: No HPI EP-cough, headaches, fever, chest congestion HPI Details This note is constructed using voice recognition software. While every effort has been made to ensure accuracy, airport operations crew member errors may have been included. The patient is a 68 year old female who presents to the clinic today with cough, headaches, fever, and chest congestion since Wednesday. She notes that her temperature was a 101.6 degrees this morning, and she took ibuprofen to help resolve this. Her cough. She called out sick today from work due to this. She is pending to watch her grandchildren at the end of the week for the long weekend, and wants to make sure that she will be well enough to take care of them. She denies shortness of breath. [facility] Medical History (Updated 11/04/23 @ 09:50 by Narinder Nunes PA-C) Cough Wrist pain, left Acute maxillary sinusitis Surgical History History of colonoscopy History of carpal tunnel release History of section Family History Father Alzheimers disease Substance abuse Mother Pneumonia Stroke Brother In good health Son In good health Daughter In good health Social History Housing: House Alcohol intake: never Patient Tobacco Use Status: Never used Tobacco e-Cigarette/Vaping Use: Never Used Second Hand Smoke Exposure: Yes service: No Current occupational status: retired Cognitive needs: No Hearing needs: No Vision needs: No (wears glasses) Physical Exam Vital Signs: Last Vital Signs Temp 99.6 F 03/06/24 10:56 Pulse 74 03/06/24 10:56 BP 130/86 03/06/24 10:56 Pulse Ox 98 03/06/24 10:56 Oxygen Delivery Method Room Air 03/06/24 10:56 BMI result Body Mass Index 26.7 Const General: cooperative, healthy appearing, comfortable and no acute distress Orientation/consciousness: patient oriented x3 Limitations: no limitations HEENT Head: Yes normal to inspection Ears: hearing grossly normal bilaterally, external ears normal and TM's normal bilaterally General nose exam: Normal external nose present, Normal nares present and No nasal discharge present Face and sinus: Yes normal facial exam and Yes sinuses nontender Mouth: Normal oral and palatal mucosa present and moist mucous membranes Throat: Yes tonsils normal, Yes uvula midline and Yes posterior oropharynx abnormal (Erythema) Eyes General: appearance normal, both eyes and all related structures Neck Neck: Yes normal visual inspection Resp Effort & Inspection: normal respiratory effort, able to speak in complete sentences, Actively coughing, no respiratory distress, not tachypneic, no tripod positioning and no use of accessory muscles Auscultation: clear to auscultation bilaterally Cardio Jugular venous distension: no JVD Rate: regular rate Rhythm: regular rhythm Heart sounds: S1 normal heart sound present, S2 normal heart sound present, no click, no gallops, no murmurs and no rubs Skin General skin exam: no rashes or lesions noted, elasticity normal and turgor normal Neuro General: patient oriented x3 Extrem General: Yes normal to inspection and Yes no clubbing, cyanosis or edema Assessment & Plan Assessment & Plan (1) URI (upper respiratory infection): Code(s): J06.9 - Acute upper respiratory infection, unspecified Qualifiers: URI type: unspecified URI Qualified Code(s): J06.9 - Acute upper respiratory infection, unspecified Plan: Viral swab obtained to rule out Covid based on symptoms. Advised mask wearing while symptomatic and quarantine per current CDC guidelines. Reviewed at home support methods including hydration, humidification, vix vapor rub, sinus rinse. Discussed treatment with antiviral therapy for covid with paxlovid including appropriate use and side effects, and need to start medication within 5 day of symptom onset, preferably within 48 hours of symptom onset. Patient is unsure if she would like to trial paxlovid, prefers results first. Advised follow up with worsening symptoms such as dyspnea at rest, which would require emergent evaluation. Orders: Orders SARS-CoV2/FLU/RSV Today J06.9 - Acute upper respiratory infection, unspecified Coding Level of Care Code Est Pt Level 3 (20255) Diagnoses Upper respiratory tract infection, unspecified type J06.9 URI type: unspecified URI
[2024-03-06 10:56] VITALS: BP 130/86; PULSE 74; TEMP 37.6; O2SAT 98; BMI 26.7
== END 2024-03-06 11:16 | disposition home or self-care (01) ==
PROVIDERS: PCP Physician Assistant; Visit Provider Registered Nurse
DX: J06.9 Acute upper respiratory infection, unspecified (principal)

== ENCOUNTER 2024-03-06 10:13 | Outpatient (REF) | payer MEDICARE, OTHER, SELFPAY ==
[2024-03-06 15:33] LABS: Influenza A PCR NEGATIVE (Negative); Influenza B PCR NEGATIVE (Negative); Resp Syncy Virus RNA Qual PCR NEGATIVE (Negative); SARS COV2 PCR INHOUSE POSITIVE (Negative)
== END 2024-03-06 10:14 | disposition home or self-care (01) ==
LOC: HO.LNP 10:13
PROVIDERS: PCP Physician Assistant; Visit Provider Registered Nurse
DX: J06.9 Acute upper respiratory infection, unspecified (principal)
CPT/HCPCS: 0241U; 99212

== ENCOUNTER 2024-05-05 09:39 | Outpatient (REF) | payer MEDICARE, OTHER, SELFPAY ==
[2024-05-05 13:29] LABS: Hematocrit 41.9 % (37.0-47.0); Hemoglobin 13.3 g/dl (12.0-16.0); Mean Corpuscular HGB Conc 31.7 g/dl (31.0-35.0); Mean Corpuscular Hemoglobin 28.7 pg (27.0-33.0); Mean Corpuscular Volume 90.3 fL (80.0-98.0); Mean Platelet Volume 9.5 fL (9.4-12.3); Platelet Count 281 X10*3/uL (160-400); Red Blood Count 4.64 X10*6/uL (4.20-5.50); Red Cell Distribution Width 13.6 % (11.0-16.0); White Blood Count 6.4 X10*3/uL (4.8-10.8)
[2024-05-05 14:04] LABS: Alanine Aminotransferase 21 U/L (0-31); Albumin Level 4.2 g/dL (3.5-5.0); Alkaline Phosphatase 66 U/L (39-117); Anion Gap 10 (12-20); Aspartate Amino Transferase 24 U/L (5-31); Bilirubin Total 1.3 mg/dL (0.0-1.0); Blood Urea Nitrogen 11 mg/dL (9-16); Carbon Dioxide 31 mmol/L (22-29); Chloride 105 mmol/L (96-108); Cholesterol 195 mg/dL (<200); Estimated Glomerular Filt Rate > 60; Glucose Fasting 102 mg/dL (60-99); HDL Cholesterol 71 mg/dL (>40); LDL Cholesterol Calculated 109 mg/dL (<100); Potassium 3.6 mmol/L (3.3-5.1); Sodium 142 mmol/L (135-145); Total Protein 7.2 g/dL (6.5-8.0); Triglycerides 79 mg/dL (<150)
== END 2024-05-05 09:40 | disposition home or self-care (01) ==
LOC: HO.HMGCLDS 09:39
PROVIDERS: PCP Physician Assistant; Visit Provider Physician Assistant
DX: I10 Essential (primary) hypertension (principal); E03.9 Hypothyroidism, unspecified; E78.5 Hyperlipidemia, unspecified
CPT/HCPCS: 36415; 80053; 80061; 84443; 85027

== ENCOUNTER 2024-05-08 13:21 | Outpatient (AMB) | payer MEDICARE, OTHER, SELFPAY ==
[2024-05-08 13:32] VITALS: BP 164/86; PULSE 68; O2SAT 96; BMI 27.1
--- NOTE | 2024-05-08 13:32 | A.OFFVIS_ITS ---
Intake Vital Signs 05/08/24 13:32 Height 5 ft 3 in Weight 153 lb BMI 27.1 BP 164/86 H Blood Pressure Location Lt brachial Position Sitting Pulse 68 Pulse Source Pulse Oximeter Pulse Oximetry (%) 96 Oxygen Delivery Method Room Air Intake Visit Reasons: sawv Allergies tobramycin Allergy (Unknown, Verified 05/08/24 13:40) swelling Medication List - Last Reconciled 05/08/24 by Narinder Nunes PA-C albuterol sulfate 90 mcg/actuation (Proventil HFA) 2 puffs inhalation Q6H PRN 30 days atorvastatin 20 mg PO DAILY levothyroxine 75 mcg PO DAILY 90 days losartan-hydrochlorothiazide 100-25 mg 1 tab PO DAILY 90 days montelukast 10 mg PO DAILY sennosides (Senna Lax) 17.2 mg (2 x 8.6 mg) PO BEDTIME PRN 30 days HPI sawv HPI Details Jose R is a 68 y/o F here today for an annual wellness visit Patient has a past medical history significant for hypothyroidism, hypertension, hyperlipidemia. Today we discussed her end of life planning and in her burns paiute of care. We also did discuss her comprehensive care plan which was scanned into patient's documents. Colorectal cancer screening: She is due for repeat colonoscopy in 2024 Mammogram: Up-to-date with mammograms Vaccines: Up-to-date with flu, COVID, pneumonia and shingles vaccines. Laboratory Tests 11/02/23 03/06/24 05/05/24 09:44 10:13 10:09 Hgb Creatinine 0.72 Fasting Glucose 102 H Cholesterol 209 H 195 LDL Cholesterol, C alc 118 H 109 H TSH 1.90 SARS-CoV-2 RNA (RT -PCR) POSITIVE A 05/05/24 10:29 Hgb 13.3 Creatinine Fasting Glucose Cholesterol LDL Cholesterol, C alc TSH SARS-CoV-2 RNA (RT -PCR) HPI Comments History of Present Illness Details reviewed past medical history- yes reviewed surgical / hospitalization history- yes reviewed current medications- yes reviewed family history- yes home safety throw rugs? grab bars? raised toilet seat? working smoke detectors? activities of daily living difficulty bathing or showering? difficulty dressing? difficulty using the toilet? difficulty getting in and out of bed? difficulty walking? receives help from other person's with any of the above tasks? instrumental activities of daily living uses telephone - gets to place out of walking distance- go shopping for groceries- repairs own meals- does own minor home maintenance- does own laundry- does own housework- manages own money- currently takes medication- end of life planning discussed advanced directives- yes advanced directives on file? discussed wishes expressed in advanced directives. fall risk have you had any falls with injuries in the past year? have you had 2 or more falls in the past year? fall risk assessment: [facility] Medical History Cough Wrist pain, left Acute maxillary sinusitis Surgical History History of colonoscopy History of carpal tunnel release History of section Family History Father Alzheimers disease Substance abuse Mother Pneumonia Stroke Brother In good health Son In good health Daughter In good health Social History Housing: House Alcohol intake: never Patient Tobacco Use Status: Never used Tobacco e-Cigarette/Vaping Use: Never Used Second Hand Smoke Exposure: Yes service: No Current occupational status: retired Cognitive needs: No Hearing needs: No Vision needs: No (wears glasses) Questionnaire Medicare Wellness Checkup [age] What gender do you identify with?: female During the past 4 weeks, how much have you been bothered by emotional problems such as feeling anxious, depressed, irritable, sad or downhearted, and blue?: slightly During the past 4 weeks, has your physical & emotional health limited your social activities with family, friends, neighbors, or groups?: not at all During the past 4 weeks, how much bodily pain have you generally had?: very mild pain During the past 4 weeks, was someone available to help you if you needed & want ed help?: yes, as much as I wanted During the past 4 weeks, what was the hardest physical activity you could do for at least 2 minutes?: heavy Can you get to places out of walking distance without help? (For eg., can you travel alone on buses, taxis or drive your car?): Yes Can you go shopping for groceries or clothes without someone's help?: Yes Can you prepare your own meals?: Yes Can you do your housework without help?: Yes Because of any health problems, do you need the help of another person with your personal care needs such as eating, bathing, dressing or getting around the house?: No Can you handle your own money without help?: Yes During the past 4 weeks, how would you rate your health in general?: very good During the past 4 weeks how have things been going for you?: pretty well Are you having difficulties driving your car?: no Do you always fasten your seat belt when you are in a car?: yes, usually During past 4 weeks, have you been bothered by the following: never: Falling or dizzy when standing up, Sexual problems?, Trouble eating well?, Teeth or denture problems? and Problems using the telephone? and sometimes: Tiredness or fatigue? Have you fallen 2 or more times in the past year?: No Are you afraid of falling?: No Are you a smoker?: no During the past 4 weeks, how many drinks of wine, beer, or other alcoholic beverages did you have?: no alcohol at all Do you exercise for about 20 minutes 3 or more times a week?: yes, most of the time Have you been given information to help with the following?: no: Hazards in your house that might hurt you? and no: Keeping track of your medications? How often do you have trouble taking medicines the way you have been told to take them?: I always take medicine as prescribed How confident are you that you can control & manage most of your health problems?: very confident What is your race?: White Mini Mental State Exam (MMSE) Orientation What is the (year) (season) (date) (day) (month)?: year Where are we (state) (county) (town or city) (hospital) (floor)?: town or city Attention & Calculation (CHOOSE ONE) Ask pt to begin with 100 & count backward by 7. Stop after 5 repeats. If pt cannot ask them to spell the word WORLD backward.: 86 Spell WORLD backwards (DLROW): 5 letters Score Score: 8 Activity of Daily Living Bathing - sponge bath, tub bath or shower: receives no assistance (gets in/out by self, if usual bathing means Dressing - getting clothes from closets & drawers, including inner/outer garments & fasteners.: gets clothes & gets completely dressed without help Toileting - going to the 'toilet room' for urine/bowel elimination & cleaning self/arranging clothes: goes to toilet room, cleans self, arranges clothes without help Transfer: moves in & out of bed and chair without help (may use support object) Continence: controls urination/bowel movements completely by self Feeding: feeds self without help Total Score: 0 Information obtained from: patient Using telephone: independent Traveling: independent Shopping: independent Preparing meals: independent Housework: independent Taking medicine: independent Managing money: independent PHQ-9 Over the last 2 weeks, how often have you been bothered by any of the following problems? 1. Little interest or pleasure in doing things: not at all 2. Feeling down, depressed, or hopeless: not at all 3. Trouble falling or staying asleep, or sleeping too much: several days 4. Feeling tired or having little energy: several days 5. Poor appetite or overeating: not at all 6. Feeling bad about yourself - or that you are a failure or have let yourself or your family down: not at all 7. Trouble concentrating on things, such as reading the newspaper or watching television: not at all 8. Moving or speaking so slowly that other people could have noticed. Or the opposite - being so fidgety or restless that you have been moving around a lot more than usual: not at all 9. Thoughts that you would be better off or of hurting yourself in some way: not at all Total score: 2 Depression Screening Interpretation: Negative Depression Screening Done: Yes 18264 - PHQ-9 Billing: Yes Source: Developed by Drs. Quirino Holley, Davina Schmidt, Mj Castillo and colleagues, with an educational ila from [employer]. Physical Exam Vital Signs: Last Vital Signs Pulse 68 05/08/24 13:32 BP 164/86 H 05/08/24 13:32 Pulse Ox 96 05/08/24 13:32 Oxygen Delivery Method Room Air 05/08/24 13:32 BMI result Body Mass Index 27.1 HEENT Other: hearing screening whisper test- pass Eyes Other: vision screening- wearing corrective lenses 20 20 OS OD OU Other: urinary incontinence? no Neuro Other: balance Romberg- normal tandem walk test- able walk-in turned test- able rise from sit to stand- within 2 seconds Office Procedures Flu Questionnaire Does the patient have a severe egg allergy?: No Immunizations Fluarix Triv [id number] (PF) 45 mcg (15 mcg x 3)/0.5 mL IM syringe Performing Provider: Narinder Nunes PA-C [place] Documented (not given) by: LUC Morales on 05/08/24 14:30 Reason Not Given: Patient Refused Assessment & Plan Assessment & Plan (1) Annual wellness visit: Code(s): Z00.00 - Encounter for general adult medical examination without abnormal findings Plan: As per HPI (2) Postmenopausal: Code(s): Z78.0 - Asymptomatic menopausal state Plan: Patient due for repeat screening bone density, does have history of osteopenia. (3) Colon cancer screening: Code(s): Z12.11 - Encounter for screening for malignant neoplasm of colon Plan: Patient is due for screening colonoscopy [address]. [address] referral to gastro for evaluation Orders: Orders Influenza [id number] Immunization 05/08/24 Z23 - Encounter for immunization Referrals Gastroenterology Referral Z12.11 - Encounter for screening for malignant neoplasm of colon Quality Reporting (2019) Depression/Bipolar (159/160/161/177) PHQ-9: Total score: 2 Coding Level of Care Code Medicare Subsequent (G0439) Diagnoses Annual wellness visit Z00.00 Postmenopausal Z78.0 Colon cancer screening Z12.11 CPT Codes Advance Care Planning - Time spent: 1-15 minutes, on File ([id number]) Additional Codes PHQ-9 - 35222 - PHQ-9 Billing: Yes ([id number]) Advance Care Planning Advance Care Planning discussion: Completed/Scanned Date of discussion: 05/08/24 Who was present: Patient Forms completed: MOLST Time spent: 1-15 minutes, on File Actual minutes spent: 5
== END 2024-05-08 14:32 | disposition home or self-care (01) ==
PROVIDERS: PCP Physician Assistant; Visit Provider Physician Assistant
DX: Z23 Encounter for immunization (principal)

== ENCOUNTER → 2024-05-08 13:21 | Outpatient (BNVA) | payer MEDICARE, OTHER, SELFPAY | PROVIDERS: PCP Physician Assistant; Visit Provider Physician Assistant | DX: Z00.00 Encounter for general adult medical examination without abnormal findings (principal); E03.9 Hypothyroidism, unspecified; I10 Essential (primary) hypertension; E78.5 Hyperlipidemia, unspecified; Z78.0 Asymptomatic menopausal state; Z28.21 Immunization not carried out because of patient refusal | CPT/HCPCS: 90471; 96127 ==

== ENCOUNTER 2024-05-18 12:21 | Outpatient (REF) | payer MEDICARE, OTHER, SELFPAY | END 2024-05-18 12:22 | disposition home or self-care (01) | LOC: HO.MAMMO 12:21 | PROVIDERS: PCP Physician Assistant; Visit Provider Physician Assistant | DX: Z12.31 Encounter for screening mammogram for malignant neoplasm of breast (principal) | CPT/HCPCS: 77063; 77067 ==

== ENCOUNTER → 2024-05-18 12:30 | Outpatient (BNV) | payer MEDICARE, OTHER, SELFPAY | PROVIDERS: PCP Physician Assistant; Visit Provider Internal Medicine | DX: Z12.31 Encounter for screening mammogram for malignant neoplasm of breast (principal) | CPT/HCPCS: 77063; 77067 ==

== ENCOUNTER 2024-07-05 10:50 | Outpatient (REF) | payer MEDICARE, OTHER, SELFPAY ==
--- NOTE | ~2024-07-05 | MM_ITS ---
EXAMINATION: MM DIAGNOSTIC DIGITAL BREAST TOMOSYNTHESIS, BILATERAL Bilateral Limited ultrasound. CLINICAL INFORMATION: Call back from screening for bilateral asymmetries. COMPARISON: Mammography: Comparison is made with relevant prior exams. TECHNIQUE: Digital breast mammography with tomosynthesis is performed in both the craniocaudal and mediolateral oblique views along with computer-aided detection (CAD). Bilateral Limited ultrasound. FINDINGS: There are scattered areas of fibroglandular density (ACR BI-RADS breast composition Category b). Left: Previously seen asymmetry in the superior left breast on MLO view does not persist on additional imaging projections and likely represented overlapping breast tissue. Targeted color Doppler ultrasound scanning in the superior left breast from 10-2 o'clock demonstrates normal fibroglandular breast tissue. Right: Asymmetry in the retroareolar region and asymmetry in the lateral breast middle to posterior depth partially to near completely effaces on additional imaging projections. Targeted color Doppler ultrasound scanning in the right breast from 9-1 o'clock upper outer quadrant upper central breast demonstrates normal fibroglandular breast tissue. Results are provided to the patient at time of visit by the technologist. MM/MM tomosynthesis added view BI IMPRESSION: Left: Negative. Right: Asymmetries in the retroareolar region and lateral breast without sonographic correlate which partially effaces on additional imaging projections. Probably benign. Recommend 6 month follow-up right breast mammography for further evaluation of stability. ASSESSMENT: BI-RADS BI-RADS 3 - Probably benign finding(s) - 6 month follow-up suggested RECOMMENDATION: 6 Month F/U This patient's information was entered into a reminder system with a target due date for their next mammogram. Electronically signed by: Lani Moreno DO 07/05/2024 12:21 PM DIANA
== END 2024-07-05 10:51 | disposition home or self-care (01) ==
LOC: HO.MAMMO 10:50
PROVIDERS: PCP Physician Assistant; Visit Provider Physician Assistant
DX: N64.89 Other specified disorders of breast (principal)
CPT/HCPCS: 76642; 77062; 77066

== ENCOUNTER → 2024-07-05 11:00 | Outpatient (BNV) | payer MEDICARE, OTHER, SELFPAY | PROVIDERS: PCP Physician Assistant; Visit Provider Internal Medicine | DX: R92.2 Inconclusive mammogram (principal) | CPT/HCPCS: 76642; 77066; G0279 ==

== ENCOUNTER 2024-11-06 14:00 | Outpatient (AMB) | payer MEDICARE, OTHER, SELFPAY ==
[2024-11-06 14:10] VITALS: BP 126/72; PULSE 56; TEMP 36.3; O2SAT 95; BMI 27.4
--- NOTE | 2024-11-06 14:10 | A.OFFPC_ITS ---
Vital Signs 11/06/24 14:10 Height 5 ft 3 in Weight 154 lb 8 oz BMI 27.4 BP 126/72 Blood Pressure Location Lt brachial Position Sitting Pulse 56 Pulse Source Pulse Oximeter Temp 97.3 F Temp Source Temporal Artery Scan Pulse Oximetry (%) 95 Intake Visit Reasons: f/u HTN Transformation Consultant Required: No Accompanied by: Self / Same As Patient Allergies tobramycin Allergy (Unknown, Verified 11/06/24 14:25) swelling Medication List - Last Reconciled 11/06/24 by Narinder Nunes PA-C albuterol sulfate 90 mcg/actuation (Proventil HFA) 2 puffs inhalation Q6H PRN 30 days atorvastatin 20 mg PO DAILY levothyroxine 75 mcg PO DAILY 90 days losartan-hydrochlorothiazide 100-25 mg 1 tab PO DAILY 90 days montelukast 10 mg PO DAILY sennosides (Senna Lax) 17.2 mg (2 x 8.6 mg) PO BEDTIME PRN 30 days Tobacco use date assessed: 11/06/24 Fall risk assessment: No Falls in past year Last assessed Fall Risk: 11/06/24 Dental Screening Dental Screen Date: 11/06/24 Did you have a dental visit in the last 12 months?: Yes Did you have a dental problem in the last 6 months where you did not have access to dental care?: No Was dental information given to patient?: Patient has dentist HPI f/u HTN HPI Details Jose R is a 69 y/o F ? here today for for follow-up visit Patient has a past medical history significant for hypothyroidism, hypertension, hyperlipidemia. Kelsie does report she sees an eye doctor and was told she had mild macular degeneration and has seen a retinal specialist whom believes her eyes are stable. ? .. ? HTN: Blood pressure today acceptable in office. doesn't regularly take her BP at home. Taking HTN meds without any side effects. ? .. ? HLD: Taking Statin for cholesterol, reporting No side effects.. Patient has gained a small amount of weight over the last 6months . ? .. ? Hypothyroid:? Patient continues levothyroxine 75 mcg. Most recent TSH stable. TSH has been somewhat stable though does have to make adjustments in her levothyroxine dose at times. Will recheck TSH to assure normal. Patient is in need of a screening colonoscopy. [facility] Medical History Cough Wrist pain, left Acute maxillary sinusitis Surgical History History of colonoscopy History of carpal tunnel release History of section Family History Father Alzheimers disease Substance abuse Mother Pneumonia Stroke Brother In good health Son In good health Daughter In good health Social History Housing: House Alcohol intake: never Patient Tobacco Use Status: Never used Tobacco e-Cigarette/Vaping Use: Never Used Second Hand Smoke Exposure: Yes service: No Current occupational status: retired Cognitive needs: No Hearing needs: No Vision needs: No (wears glasses) Questionnaire PHQ-9 Over the last 2 weeks, how often have you been bothered by any of the following problems? 1. Little interest or pleasure in doing things: not at all 2. Feeling down, depressed, or hopeless: not at all 3. Trouble falling or staying asleep, or sleeping too much: several days 4. Feeling tired or having little energy: several days 5. Poor appetite or overeating: not at all 6. Feeling bad about yourself - or that you are a failure or have let yourself or your family down: not at all 7. Trouble concentrating on things, such as reading the newspaper or watching television: not at all 8. Moving or speaking so slowly that other people could have noticed. Or the opposite - being so fidgety or restless that you have been moving around a lot more than usual: not at all 9. Thoughts that you would be better off or of hurting yourself in some way: not at all Total score: 2 Depression Screening Interpretation: Positive Depression Screening Follow-up: Existing condition Depression Screening Done: Yes 67495 - PHQ-9 Billing: Yes Source: Developed by Drs. Quirino Holley, Davina Schmidt, Mj Castillo and colleagues, with an educational ila from [employer]. Thrive Questionnaire Date Thrive assessed: 11/06/24 I am a: Patient What is your living situation today?: I have a steady place to live Within the past 12 months, did the food you bought not last and you didn't have the money to get more?: Never true Within the past 12 months, did you worry whether your food would run out before you got money to buy more?: Never true Do you have trouble paying for medicines?: No Do you have trouble getting transportation to medical appointments?: No Do you have trouble paying your heating and electricity bill?: No Do you have trouble taking care of your child, family member or friend?: No Do you have trouble with day-to-day activities such as bathing, preparing meals, shopping, managing finances, etc.?: No Are you currently unemployed and looking for a job?: No Are you interested in more education?: No Please select the resources that you would like help with: None Currently or been in a relationship where the following occur: No concerns reported THRIVE Score: 0 AUDIT C Alcohol Use Questionnaire (AUDIT-C) 1. How often do you have a drink containing alcohol?: Never 3. How often do you have six or more drinks on one occasion?: Never Total Score: 0 DONNA-7 AMB Questionnaire DONNA-7 Date DONNA - 7 assessed: 11/06/24 Feeling nervous, anxious, or on edge: 0 = Not at all Not being able to stop or control worryin = Not at all Worrying too much about different things: 0 = Not at all Trouble relaxin = Not at all Being so restless that it is hard to sit still: 0 = Not at all Becoming easily annoyed or irritable: 0 = Not at all Feeling afraid as if something awful might happen: 0 = Not at all Total DONNA-7 score (0-4 normal; 5-9 mild; 10-14 moderate; 15-21 severe): 0 Source: Developed by Drs. Quirino Holley, Davina Schmidt, Mj Castillo and colleagues, with an educational ila from [employer] DONNA-7 Assessment Billing DONNA-7 Assessment Tool: DONNA-7 Assessment 79974 Review of Systems Const Denies headache(s) Eyes Denies loss of vision ENT Denies vertigo, Denies dizziness, Denies headache(s) and Denies sore throat Card Denies chest pain, Denies leg edema and Denies lightheadedness Resp Denies cough, Denies hemoptysis and Denies wheezing GI Denies abdominal pain, Denies melena, Denies constipation, Denies diarrhea and Denies vomiting Denies urinary frequency, Denies dysuria and Denies urinary urgency Musc Denies arthralgias, Denies joint swelling, Denies numbness and Denies tingling Neuro Denies Abnormal speech present, Denies behavioral changes, Denies vertigo, Denies dizziness, Denies headache(s), Denies loss of vision, Denies memory loss, Denies numbness and Denies tingling Psych Denies anxiety, Denies behavioral changes, Denies depression, Denies memory loss and Denies panic attacks Donavon/Lymph Denies easy bleeding and Denies easy bruising Aller/Immun Denies wheezing Physical exam (Primary Care) Vital Signs: Last Vital Signs Temp 97.3 F 11/06/24 14:10 Pulse 56 11/06/24 14:10 BP 126/72 11/06/24 14:10 Pulse Ox 95 11/06/24 14:10 BMI result Body Mass Index 27.4 Tobacco/Smoking Status: Tobacco use Status Tobacco use date assessed 11/06/24 11/06/24 14:15 Patient Tobacco Use Status Never used Tobacco 11/06/24 14:11 e-Cigarette/Vaping Use Never Used 11/06/24 14:11 PHQ-9: PHQ-9 Score PHQ-9: Total score 2 11/06/24 14:26 Depression Screening Interpretation: Positive Depression Screening Follow-up: Existing condition Thrive Assessment: Date of Thrive Assessment Date Thrive assessed 11/06/24 11/06/24 14:15 Currently or been in a relationship where the following occur: No concerns reported Const General: healthy appearing, no acute distress, alert and awake Nutritional Appearance: well nourished Orientation/consciousness: oriented to person, oriented to place and oriented to time HENMT Ears: TM's normal bilaterally General nose exam: Normal nasal mucous membranes and turbinates present Eyes Conjunctivae: conjunctivae normal Sclerae: sclerae normal Pupils: Equal, round and reactive pupils present Neck Neck: Yes no lymphadenopathy and Yes no JVD Thyroid: Thyroid normal Carotids: no bruits Resp Effort & Inspection: normal respiratory effort and not tachypneic Auscultation: no crackles, no rales, no rhonchi and no wheezes Cardio Rate: regular rate Rhythm: regular rhythm Heart sounds: no murmurs and normal S1 and S2 GI Palpation (GI): Soft to palpation, nontender, no hepatomegaly and no splenomegaly Auscultation: normal bowel sounds Skin General skin exam: no rashes or lesions noted and dry skin Neuro General: oriented to person, oriented to place and oriented to time Cranial nerves: Yes Equal, round and reactive pupils present Speech: No Abnormal speech present Gait exam (Neuro): Normal gait present Motor exam (neuro): no tremor noted Extrem Right upper extremity: full ROM Left upper extremity: full ROM Right lower extremity: full ROM; no edema Left lower extremity: full ROM; no edema Psych Mental Status: mental status grossly normal Speech and movement: Normal speech and movement present Affect: normal affect Attitude: cooperative Thought process: Normal thought process present Coding Level of Care Code Est Pt Level 3 (18596) Diagnoses Essential hypertension I10 Hypertension type: essential hypertension Hypothyroidism, unspecified type E03.9 Hypothyroidism type: unspecified Borderline hyperlipidemia E78.5 Macular degeneration (senile) of retina H35.30 Additional Codes DONNA-7 Assessment Billing - DONNA-7 Assessment Tool: DONNA-7 Assessment 73598 ([id number]) PHQ-9 - 08081 - PHQ-9 Billing: Yes ([id number]) Assessment & Plan Assessment & Plan (1) HTN (hypertension): Code(s): I10 - Essential (primary) hypertension Category: Medical Qualifiers: Hypertension type: essential hypertension Qualified Code(s): I10 - Essential (primary) hypertension Plan: Patient's blood pressure acceptable today in office. Will continue current dose of losartan hydrochlorothiazide with goal blood pressure to be below 140/90 (2) Hypothyroidism: Code(s): E03.9 - Hypothyroidism, unspecified Category: Medical Qualifiers: Hypothyroidism type: unspecified Qualified Code(s): E03.9 - Hypothyroidism, unspecified Plan: Patient continues on levothyroxine 75 mcg. Most recent TSH is has been stable. (3) Borderline hyperlipidemia: Code(s): E78.5 - Hyperlipidemia, unspecified Category: Medical Plan: Patient has a history of borderline high total cholesterol. She continues on atorvastatin 20 mg, will recheck fasting lipids to ensure the appropriate. Goal LDL to be below 130 (4) Macular degeneration (senile) of retina: Code(s): H35.30 - Unspecified macular degeneration Category: Medical Plan: Patient followed by environmental construction engineer was found to a mild macular degeneration Orders: Orders Microalbumin, Random (w Creat) 11/06/24 I10 - Essential (primary) hypertension Lipid Panel 11/06/24 E78.5 - Hyperlipidemia, unspecified Complete Blood Count no Diff 11/06/24 E78.5 - Hyperlipidemia, unspecified Comprehensive [place]. Panel Fast 11/06/24 E78.5 - Hyperlipidemia, unspecified TSH reflex Free T4 11/06/24 E03.9 - Hypothyroidism, unspecified Referrals Gastroenterology Referral Z12.11 - Encounter for screening for malignant neoplasm of colon
--- OUTSIDE RECORDS SUMMARY | 2024-11-06 15:35 | XMS_ITS | Patient Health Record ---
Author Organization [facility] Address [address] [place] [address] Care Team Providers Care Sound Engineer Name Role Phone César (RETIRED) Wesley ALAN Primary Care Provide r Unavailable Quirino Wilson Unavailable [phone] Reason For Referral No Information Medications Medication SIG (Take, Route, Frequency, Duration) Notes Start Date End Date Status Restasis 0.05 % 1 into affected eye Ophthalmic Twice a day Active Loratadine 10 MG 1 tablet Orally Once a day Active Fish Oil 1200 MG 1 capsule Orally Onc e a day Active Calcium 500+D 500-200 MG-UNIT 1 tablet with food Orally Once a day Active Suprep Bowel Prep 1 kit as directed Oral ly as directed for 1 dose 04/21/2014 Active Losartan Potassium-HCTZ 100-12.5 MG 1 tablet Orally Once a day Active Atorvastatin Calcium 10 MG 1 tablet Oral ly Once a day Active Levothyroxine Sodium 88 MCG 1 tablet Ora lly Once a day Active Montelukast Sodium 10 MG 1 tablet in the evening Orally Once a day Active Problems Problem Type SNOMED Code ICD Code Onset Dates Problem Status W/U Status Risk Notes Problem Pre-surgery evaluation (507605798) Other specified pre-operative examination (V72.83) Active confirmed Problem Long-term current use of drug therapy (786490943) Encounter for long-term (current) use of other medications (V58.69) Active confirmed Problem Colon cancer screening (417542180) Colon cancer screening (V76.51) Active confirmed Plan Of Treatment Future Test Test Name Order Date COLONOSCOPY 04/18/2014 Insurance Providers Payer Name Payer Address Payer Phone Subscriber Number Group Number Insured Name Patient Relationship to Insured Coverage Start Date Coverage End Date [employer] [address] [place] [address] [id number] ANAHI CLARKE Self - patient is the insured Medical (General) History Surgical History Surgery Date(Month/Year) Carpal tunnel surgery bilaterally
== END 2024-11-06 14:48 | disposition home or self-care (01) ==
LOC: HO.HMCH 14:01
PROVIDERS: PCP Physician Assistant; Visit Provider Physician Assistant
DX: I10 Essential (primary) hypertension (principal); E03.9 Hypothyroidism, unspecified; E78.5 Hyperlipidemia, unspecified; H35.30 Unspecified macular degeneration

== ENCOUNTER → 2024-11-06 14:00 | Outpatient (BNVA) | payer MEDICARE, OTHER, SELFPAY | PROVIDERS: PCP Physician Assistant; Visit Provider Physician Assistant | DX: I10 Essential (primary) hypertension (principal); E03.9 Hypothyroidism, unspecified; E78.5 Hyperlipidemia, unspecified; H35.30 Unspecified macular degeneration | CPT/HCPCS: 96127; 99212 ==

== ENCOUNTER 2024-11-08 09:22 | Outpatient (REF) | payer MEDICARE, OTHER, SELFPAY ==
--- OUTSIDE RECORDS SUMMARY | 2024-11-08 10:20 | XMS_ITS | Patient Health Record ---
Author Organization [facility] Address [address] [place] [address] Care Team Providers Care Visual Associate Name Role Phone Narinder Nunes Primary Care Provider Unavailab Quirino Pedersen Unavailable [phone] Reason For Referral No Information Medications Medication [...] W/U Status Risk Notes Problem Pre-surgery evaluation (068266914) Other specified pre-operative examination (V72.83) Active confirmed Problem Long-term current use of drug therapy (868031311) Encounter for long-term (current) use of other medications (V58.69) Active confirmed Problem Colon cancer screening (702508946) Colon cancer screening (V76.51) Active confirmed Plan Of Treatment Future Test Test Name Order Date COLONOSCOPY 04/18/2014 Next Appt Details Provider Name:Quirino Wilson , 02/21/2025 02:00:00 PM, [address], [address], [place], [address], Insurance Providers Payer Name Payer Address Payer Phone Subscriber Number Group Number Insured Name Patient Relationship to Insured Coverage Start Date Coverage End Date [place]ARE OF [place] [address] [place] [id number] ANAHI CLARKE Self - patient is the insured [facility] [address] [place] [address] [id number] ANAHI CLARKE Self - patient is the insured Medical (General) History Surgical History Surgery Date(Month/Year) Carpal tunnel surgery bilaterally
[2024-11-08 13:29] LABS: Hematocrit 41.2 % (37.0-47.0); Hemoglobin 13.2 g/dl (12.0-16.0); Mean Corpuscular Hemoglobin 28.8 pg (27.0-33.0); Mean Platelet Volume 9.7 fL (9.4-12.3); Platelet Count 295 X10*3/uL (160-400); Red Blood Count 4.58 X10*6/uL (4.20-5.50); Red Cell Distribution Width 13.4 % (11.0-16.0); White Blood Count 7.4 X10*3/uL (4.8-10.8)
[2024-11-08 14:02] LABS: Alanine Aminotransferase 22 U/L (0-31); Albumin Level 4.4 g/dL (3.5-5.0); Alkaline Phosphatase 67 U/L (39-117); Anion Gap 13 (12-20); Aspartate Amino Transferase 28 U/L (5-31); Bilirubin Total 1.1 mg/dL (0.0-1.0); Blood Urea Nitrogen 21 mg/dL (9-16); Calcium 9.3 mg/dL (8.4-10.2); Carbon Dioxide 27 mmol/L (22-29); Chloride 104 mmol/L (96-108); Cholesterol 213 mg/dL (<200); Estimated Glomerular Filt Rate > 60; Glucose Fasting 99 mg/dL (60-99); HDL Cholesterol 70 mg/dL (>40); LDL Cholesterol Calculated 128 mg/dL (<100); Potassium 3.8 mmol/L (3.3-5.1); Sodium 140 mmol/L (135-145); TSH reflex Free T4 1.69 uIU/mL (0.32-4.0); Total Protein 6.9 g/dL (6.5-8.0); Triglycerides 79 mg/dL (<150)
[2024-11-08 14:37] LABS: Microalbum/Creatinine Ratio Ur 12.6 ug/mg cr (<30)
== END 2024-11-08 09:23 | disposition home or self-care (01) ==
LOC: HO.HMGCLDS 09:22
PROVIDERS: PCP Physician Assistant; Visit Provider Physician Assistant
DX: I10 Essential (primary) hypertension (principal); E78.5 Hyperlipidemia, unspecified; E03.9 Hypothyroidism, unspecified
CPT/HCPCS: 36415; 80053; 80061; 82043; 82570; 84443; 85027

== ENCOUNTER 2024-11-24 13:28 | Outpatient (REF) | payer MEDICARE, OTHER, SELFPAY | END 2024-11-24 13:29 | disposition home or self-care (01) | LOC: HO.LNP 13:28 | PROVIDERS: PCP Physician Assistant; Visit Provider Physician Assistant | DX: N30.01 Acute cystitis with hematuria (principal); Z13.9 Encounter for screening, unspecified | CPT/HCPCS: 81003; 87086; 87088; 87186; 99212 ==

== ENCOUNTER 2024-11-24 13:28 | Outpatient (AMB) | payer MEDICARE, OTHER, SELFPAY ==
[2024-11-24 13:30] VITALS: BP 138/70; PULSE 65; TEMP 36.7; O2SAT 98; BMI 27.5
--- NOTE | 2024-11-24 13:30 | AM.OFFWIN_ITS ---
Intake Vital Signs 11/24/24 13:30 Height 5 ft 3 in Weight 155 lb 6 oz BMI 27.5 BP 138/70 Blood Pressure Location Rt brachial Position Sitting Pulse 65 Pulse Source Pulse Oximeter Temp 98.1 F Temp Source Oral Pulse Oximetry (%) 98 Oxygen Delivery Method Room Air Intake Visit Reasons: EP UTI? Intake Note: Patient presents with frequency, burning and urgency times 3 days Patient Tobacco Use Status: Never used Tobacco Human Resources Administrator Required: No Is last menstrual period known: No Post menopausal: Yes Patient : No Allergies tobramycin Allergy (Unknown, Verified 11/24/24 13:35) swelling Do you need a note to return to daycare/school/sports/work: No HPI HPI Comments History of Present Illness Details History - The patient is a 69-year-old female pr esenting with symptoms suggestive of a urinary tract infection. - Symptoms began 3days ago, characterize d by burning during urination, frequent urination, and urgency. - She reported no fever but did experien ce low back pain, especially at night. - By Wednesday, the burning sensation had i mproved, leading her to seek medical attention to prevent further complications. 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 Physical Exam General: Cooperative, healthy appearing, comfortable, no acute distress and well developed Orientation: Patient oriented x3 Limitations: No limitations Head: Normal to inspection Ears: Hearing grossly normal bilaterally Face and sinus: Normal facial exam Neck: Normal visual inspection and Yes full ROM Respiratory: Normal respiratory effort and able to speak in complete sentences. Skin: No rashes or lesions noted Neuro: Patient oriented x3 [facility] Medical History Cough Wrist pain, left Acute maxillary sinusitis Surgical History History of colonoscopy History of carpal tunnel release History of section Family History Father Alzheimers disease Substance abuse Mother Pneumonia Stroke Brother In good health Son In good health Daughter In good health Social History Housing: House Alcohol intake: never Patient Tobacco Use Status: Never used Tobacco e-Cigarette/Vaping Use: Never Used Second Hand Smoke Exposure: Yes Patient : No service: No Current occupational status: retired Cognitive needs: No Hearing needs: No Vision needs: No (wears glasses) Review of Systems Const All systems reviewed & are unremarkable except as noted in HPI and below Physical Exam Vital Signs: Last Vital Signs Temp 98.1 F 11/24/24 13:30 Pulse 65 11/24/24 13:30 BP 138/70 11/24/24 13:30 Pulse Ox 98 11/24/24 13:30 Oxygen Delivery Method Room Air 11/24/24 13:30 BMI result Body Mass Index 27.5 Results AMB Urinalysis, Automated UA Leukoctes 500 Vicky/uL Last Edit by Latrell Perez CMA on 11/24/24 13:4 7 UA Nitrite Negative Last Edit by Latrell Perez CMA on 11/24/24 13:47 UA Urobilinogen 0.2 mg/dL Last Edit by Latrell Perez CMA on 11/24/24 13 :47 UA Protein 30 mg/dL Last Edit by Latrell Perez CMA on 11/24/24 13:47 UA pH 7.0 Last Edit by Latrell Perez CMA on 11/24/24 13:47 UA Blood 200 Kyle/uL Last Edit by Latrell Perez CMA on 11/24/24 13:47 UA Specific [place] 1.010 Last Edit by Latrell Perez CMA on 11/24/24 13:47 UA Ketone Negative Last Edit by Latrell Perez CMA on 11/24/24 13:47 UA Bilirubin 0 mg/dL Last Edit by Latrell Perez CMA on 11/24/24 13:47 UA Glucose 0 mg/dL Last Edit by Latrell Perez CMA on 11/24/24 13:47 Assessment & Plan Assessment & Plan (1) UTI (urinary tract infection): Code(s): N39.0 - Urinary tract infection, site not specified Qualifiers: Hematuria presence: with hematuria Urinary tract infection type: acute cystitis Qualified Code(s): N30.01 - Acute cystitis with hematuria Plan: Plan Patient was informed and verbally consented to the use of an ambient scribe for clinic note documentation during this visit. 1. Urinary Tract Infection (Uti) - UA 3+ leuks, 3+ blood, 1+ protein - Treatment with Cefuroxime, 250 mg every 12 hours for five days, is recommended to address the infection. - A urine culture will be conducted to verify the organism and antibiotic sensitivity. - The patient should be vigilant for fever, increased pain, or hematuria, and seek emergency care if these symptoms develop. Orders: Orders Urine Culture Today N39.0 - Urinary tract infection, site not specified AMB Urinalysis Automated Today Z13.9 - Encounter for screening, unspecified Medications: New cefuroxime axetil 500 mg PO Q12H 10 tabs 0RF Coding Level of Care Code Est Pt Level 3 (01568) Diagnoses Acute cystitis with hematuria N30.01 Hematuria presence: with hematuria Urinary tract infection type: acute cystitis
--- OUTSIDE RECORDS SUMMARY | 2024-11-24 13:30 | XMS_ITS | Patient Health Record ---
[facility] Organization [facility] Address [address] [place] [address] Care Team Providers Care Ingot Buggy Operator Name Role Phone Narinder Nunes Primary Care Provider Unavailab Quirino Pedersen Unavailable [phone] Reason For Referral No Information Medications Medication [...] W/U Status Risk Notes Problem Pre-surgery evaluation (389909513) Other specified pre-operative examination (V72.83) Active confirmed Problem Long-term current use of drug therapy (852546725) Encounter for long-term (current) use of other medications (V58.69) Active confirmed Problem Colon cancer screening (632891340) Colon cancer screening (V76.51) Active confirmed Plan Of Treatment Future Test Test Name Order Date COLONOSCOPY 04/18/2014 Next Appt Details Provider Name:Quirino Wilson , 02/21/2025 02:00:00 PM, [address], [address], [place], [address], Insurance Providers Payer Name Payer Address Payer Phone Subscriber Number Group Number Insured Name Patient Relationship to Insured Coverage Start Date Coverage End Date [place] [address] [place] [id number] ANAHI CLARKE Self - patient is the insured [facility] [address] [place] [address] [id number] ANAHI CLARKE Self - patient is the insured Medical (General) History Surgical History Surgery Date(Month/Year) Carpal tunnel surgery bilaterally
== END 2024-11-24 14:28 | disposition home or self-care (01) ==
PROVIDERS: PCP Physician Assistant; Visit Provider Physician Assistant
DX: N30.01 Acute cystitis with hematuria (principal); Z13.9 Encounter for screening, unspecified

== ENCOUNTER 2025-01-01 12:29 | Outpatient (REF) | payer MEDICARE, OTHER, SELFPAY ==
--- NOTE | ~2025-01-01 | MM_ITS ---
EXAMINATION: MM DIAGNOSTIC DIGITAL BREAST TOMOSYNTHESIS, RIGHT CLINICAL INFORMATION: This is a 6-month follow-up of right breast asymmetries located in the retroareolar region on the MLO view and in the lateral breast on the CC view. COMPARISON: Comparison made to multiple prior, most recent right mammogram on July 05, 2024, and most remote April 09, 2020. TECHNIQUE: Digital breast tomosynthesis is performed in both the craniocaudal and mediolateral oblique views along with computer-aided detection (CAD). FINDINGS: BREAST COMPOSITION: There are scattered areas of fibroglandular density (ACR BI-RADS breast composition Category b). RIGHT BREAST: Previously described asymmetry in the retroareolar region middle depth on the MLO view and asymmetry in the lateral breast middle depth on the CC view are unchanged from previous spot compression views from June 2024. MM/MM tomosynthesis diagnostic RT IMPRESSION: RIGHT BREAST: Unchanged asymmetries in the retroareolar region and in the lateral breast without sonographic correlate. Probably benign. A 6-month follow-up is recommended as bilateral diagnostic mammogram expected in May 2025. ASSESSMENT: BI-RADS 3 - Probably benign finding(s) - 6 month follow-up suggested RECOMMENDATION: 6 Month F/U Results were provided to the patient at time of visit by the technologist. This patient's information was entered into a reminder system with a target due date for their next mammogram. Electronically signed by: Matt Singh MD 01/01/2025 01:08 PM EDT
--- OUTSIDE RECORDS SUMMARY | 2025-01-01 13:29 | XMS_ITS | Patient Health Record ---
Author Organization [facility] Address [address] [place] [address] Care Team Providers Care Csr Name Role Phone Narinder Nunes Primary Care Provider Unavailab Quirino Pedersen Unavailable [phone] Reason For Referral No Information Medications Medication [...] W/U Status Risk Notes Problem Pre-surgery evaluation (713421655) Other specified pre-operative examination (V72.83) Active confirmed Problem Long-term current use of drug therapy (765882559) Encounter for long-term (current) use of other medications (V58.69) Active confirmed Problem Colon cancer screening (V76.51) Active confirmed Plan Of Treatment Future Test Test Name Order Date COLONOSCOPY 04/18/2014 Next Appt Details Provider Name:Quirino Lianne Wilson , 02/21/2025 02:00:00 PM, [address] [facility], [address], [place], [address], Insurance Providers Payer Name Payer Address Payer Phone Subscriber Number Group Number Insured Name Patient Relationship to Insured Coverage Start Date Coverage End Date MEDICARE OF [place] [address] [place] [id number] [phone] [id number] ANAHI CLARKE Self - patient is the insured [facility] [address] [place] [address] [id number] ANAHI CLARKE Self - patient is the insured Medical (General) History Surgical History Surgery Date(Month/Year) Carpal tunnel surgery bilaterally
== END 2025-01-01 12:30 | disposition home or self-care (01) ==
LOC: HO.MAMMO 12:29
PROVIDERS: PCP Physician Assistant; Visit Provider Physician Assistant
DX: N64.89 Other specified disorders of breast (principal)
CPT/HCPCS: 77061; 77065

== ENCOUNTER → 2025-01-01 13:00 | Outpatient (BNV) | payer MEDICARE, OTHER, SELFPAY | PROVIDERS: PCP Physician Assistant; Visit Provider Radiology Body Imaging | DX: N64.89 Other specified disorders of breast (principal) | CPT/HCPCS: 77065; G0279 ==